=== PATIENT | male | born 1940 | race Caucasian/White ===

== ENCOUNTER 2024-12-11 19:47 | Inpatient (IN) | payer MEDICARE, BC, SELFPAY ==
[2024-12-11 20:17] VITALS: BP 148/74; PULSE 100; RESP 18; TEMP 37.3; O2SAT 97; BMI 27.8
[2024-12-11 20:33] LABS: Appearance Urine Cloudy (Clear); Bilirubin Urine Negative (Negative); Blood Urine 1+ (Negative); Color Urine Yellow (Yellow); Glucose Urine Negative (Negative); Ketones Urine Negative (Negative); Leukocyte Esterase Urine 1+ (Negative); Nitrite Urine Negative (Negative); Protein Urine Trace (Negative); Specific Gravity Urine >= 1.030 (1.000-1.030); Urobilinogen Urine 0.2 (0.2-1.0); pH Urine 5.5 (5.0-8.5)
[2024-12-11 20:58] LABS: Squamous Epithelial Cell Urine Few (None-Few)
[2024-12-11 20:59] LABS: Bacteria Urine Few
--- OUTSIDE RECORDS SUMMARY | 2024-12-11 20:59 | XMS_ITS | Encounter Summary ---
Author Organization [facility] Address [address], [place] [address] Care Team Providers Care Retirement Village Manager Name Role Phone Jameson Fink MD Primary Care Provider [phone] Reason for Referral * Procedure/Equipment (Routine) - Incomplete Specialty Diagnoses / Procedures Referred By Mariya franco Referred To Contact Diagnoses Benign prostatic hyperplasia with urinary retention Procedures Case Request OR - Urology Surgery: TRANSURETHRAL RESECTION PROSTATE Milo Lowery MD [address] [place] [id number] Referral ID Status Reason Start Date Expiration Date V isits Requested Visits Authorized [id number] Incomplete 11/13/2024 02/12/2026 1 1 TAL FORENSICS INVESTIGATOR Reason for Visit * Reason Comments Surgery Questions Encounter Details Date Type Department Care Team (Late st Contact Info) Description 11/13/2024 9:15 AM DIGITAL FORENSICS INVESTIGATOR Office Visit [facility] [address] [place] [address]. [place] [address] Milo Lowery MD [address] [place] [address] [phone] Benign prostatic hyperplasia with urinary retention (Primary Dx) Social History Tobacco Use Types Packs/Day Years Used Date Smoking Tobacco: Never Smokeless Tobacco: Never Alcohol Use Standard Drinks/Week Comments Yes 3 (1 standard drink = 0.6 oz pur e alcohol) Humiliation, Afraid, Rape, and Kick questionnair e Answer Date Recorded Within the last year, have y ou been afraid of your partner or ex-partner? No 10/04/2024 Within the last year, have y ou been humiliated or emotionally abused in other ways by your partner or ex-partner? No Within the last year, have y ou been kicked, hit, slapped, or otherwise physically hurt by your partner or ex-partner? No 10/04/2024 Within the last year, have y ou been raped or forced to have any kind of sexual activity by your partner or ex-partner? No 10/04/2024 PHQ-2 Answer Date Recorded PHQ-2 Score 0 08/12/2024 Sex and Gender Information Value Date Recorded Sex Assigned at Not on file Gender Identity Not on file Sexual Orientation Not on file documented as of this encounter Patient Instructions * Patient Instructions* Lucero Figueroa LPN - 11/13/2024 9:15 AM DIGITAL FORENSICS INVESTIGATOR Images from the original note were not included. You will be scheduled for a TURP (TransUrethral Resection of the Prostate). Within 30 Days of your surgery, you will need to see your Primary Physician for a History and Physical. This will ensure that you are medically ready to have your surgery and anesthesia. If your physical condition changes, such as you get a cold, fever or have a significant change in the condition for which you are having surgery, please contact us as soon as possible at [phone] the hours of 8:00am and 5:00pm. Do not take any Ibuprofen, Aspirin or Naprosyn type products or vitamin E within 7 days prior to your procedure. You may continue to take low dose Aspirin (81mg) as usual. If you are taking Aspirin, Coumadin, Plavix or other blood thinners for medical reasons, please consult with your prescribing physician to ensure that it is safe for you to stop. (Tylenol/acetaminophen is acceptable to take as needed for pain). Stop taking any herbal medications two weeks before your surgery. Examples of these medications include garlic supplements, fish oil, ephedra, and glucosamine. Please shower with any antibacterial soap the night before and the morning of surgery. Shampoo hairbut do not use any type of hair products such as gels or hairspray. Change bedding the night beforesurgery. Do not use lotions or deodorants prior to your surgical procedure. The Surgery Nurses will call you 1-3 days prior to surgery to confirm what time you should arrive. If they do not reach you, please call if your surgery is at [facility] or for the [facility]. Do not eat or drink after midnight the night before your surgery. This includes chewing gum and smoking. Do not have anything the morning of surgery, including water. If you are having an outpatient procedure, please have someone to drive you home. If you are staying in the hospital, please have someone to drive you home when you are discharged. Contact Information for Post Operative Care U[facility] Clinic, between the hours of 8am-5pm, Monday through Monday. After hours and on weekends, call [facility] at [phone]. For more information on what to expect during your upcoming surgery, feel free to check out our video online that reviews information about having surgery. To find this video: Go to [email or web address] or [email or web address] Search for [employer] Pre-Op Education Be sure your volume is turned on and enjoy! ~~~~~~~~~~~~~~~~~~~~~~~~~~~~~~~~~ Urinary catheter care An indwelling Watson catheter remains in place continuously. To keep the catheter from slipping out,it has a balloon on the end that is inflated with sterile water once the end is inside the bladder. An indwelling urinary catheter is a flexible plastic tube that is inserted through the opening thatcarries urine from the bladder to outside of the body (urethra), into the bladder, to drain urine. The tube is kept in place by a small balloon that is inflated once the tube is securely in the bladder. Urine drains into a bag that is attached to the lower leg. A urinary catheter is used when you cannot urinate by yourself. This may occur because of medical conditions, such as prostate enlargement and incontinence, or after surgery for prostate cancer. Urinary catheters are also used when the lower part of the body is paralyzed. Your health professional will decide how long you need to have the catheter. To care for your urinary catheter at home: Make sure that urine is flowing out of the catheter into the drainage bag. Check the area around the urethra for inflammation or signs of infection, such as irritated, swollen, red or tender skin at the insertion site or drainage around the catheter. Keep the urinary drainage bag below the level of the bladder. Make sure that the urinary drainage bag does not drag and pull on the catheter. Caring for your catheter If your health professional has given you specific instructions on caring for your urinary catheter, be sure to follow them. Always wash your hands before and after caring for your catheter. Clean the area around the drainage tube twice each day. Use soap and water to carefully wash around the drainage tube. Rinse well and dry with a clean towel. Do not tug or pull on the drainage tube. Unless you have been instructed otherwise, you may take a shower wearing your urinary catheter. Do not apply powder or lotion to the catheter insertion site. When changing leg bag to nighttime bag use alcohol wipe to cleanse end of connector prior to placing into catheter tubing. You may wrap a small piece of gauze around the area where the catheter comes out of your body. Change the gauze if it feels wet. Use a new piece of gauze each time clean your catheter. You may also apply a small amount of bacitracin ointment to tip of penis and approximately 1 inch down catheter. Drink plenty of fluids to keep producing urine. You should drink at least 8 glasses of water or other fluids each day. Do not have sexual intercourse while wearing an indwelling catheter. Prevent constipation. Make sure you drink enough fluids. Most adults should drink between 8 and 10 glasses of water, non-caffeinated beverages, or fruit juice each day. Include fruits, vegetables, and fiber in your diet each day. Try a stool softener, such as Colace, if your stools are very hard. Keep the drainage bag below the level of the bladder. At night you may wish to hang the bag on the side of your bed. Do not allow the bag to drag and pull on the catheter. Checked the drainage tube frequently to make sure it is not kinked. Do not pull or tug on your catheter. Draining the urine collection bag The bag that collects urine may be strapped your lower leg. You will need to empty the bag at regular intervals, whenever it is half full, and at bedtime. Be sure to wash your hands before and after emptying urine from your collection bag. Wash your hands with soap and water. If you are emptying another person's collection bag you may wish to wear disposable gloves. Wash your hands before you put on the gloves and after you remove them. Unfasten the tube from the drainage bag. Fasten the tubing clamp and remove the drainage cap. Drain the urine into the toilet. You may also drain the urine into another container and then emptyit into the toilet. Avoid touching the tubing or drainage cap on the toilet, the collection container, or the floor. If your health professional has instructed you to measure the amount of urine, do so before you have emptied the urine into the toilet. Replace the drainage cap, close the clamp, and refasten the collection tube to drainage bag. Refasten the collection tube to drainage bag. Wash your hands with soap and water. When to call health professional If your health professional is given instructions about when to notify him or her, be sure to follow those instructions. Call your health professional if: No urine or very little urine is flowing into the collection bag for 4 or more hours. No urine or very little urine is flowing into the collection bag and you feel like your bladder is full. You have new pain in your abdomen, pelvis, legs, or back. Your urine has changed color, is very cloudy, looks bloody, or has large blood clots in it. The insertion site becomes very irritated, swollen, red, or tender, or you have pus draining from the catheter insertion site. Your urine has a foul oder. Urine is leaking from the insertion site. You have a fever of 100??F (37.8??C) or higher or back or flank pain. You develop nausea, vomiting, or shaking chills. Where can you learn more? Go to Learnerator/Luminary Micro and enter C910 in the search box. ~~~~~~~~~~~~~~~~~~~~~~~~~~~~~~~~ What is Cystoscopy? Cystoscopy, or cystourethroscopy, is a procedure that lets a urologist view the inside of the bladder and urethra in detail. Why is Cystoscopy Performed? It is often used to find causes of bleeding or blockage, or any abnormalities of the bladder and its lining. How is Cystoscopy Performed? Cystoscopy is most often done as an outpatient procedure. Before the procedure you will empty your bladder. Then you will be placed on an exam table. A liquid or gel local anesthetic may be used on your urethra. The average cystoscopy takes about 5 to 10 minutes. Cystoscopy ?? 2009 Hortensia Mehta, [facility] has certain rights The cystoscope is inserted through the urethra into the bladder. The cystoscope is a thin, lighted tube with lenses. Most often it is bendable, but some models are rigid. Water or saline is infused through the cystoscope into the bladder. As the fluid fills the bladder, the bladder wall is stretched so the urologist can see clearly. What are the Results of Cystoscopy? The bladder wall should appear smooth, and the bladder should be normal size, shape and position. There should not be any blockages in the bladder or urethra. If any tissue appears abnormal, the cystoscope can be used to remove a small sample. In some cases, your healthcare provider will use the cystoscope to remove ureteral stents, treat scar tissues or blockages in the bladder or urethra or inject medications into the bladder and/or urethra. What Can I Expect after Cystoscopy? After the cystoscope is removed, your urethra and bladder may be sore and you may have a burning feeling for a few days. You may find some blood in your urine at first, but this should go away withina few days. You also may have burning or stinging when you urinate. You also may have increased urge to urinate or increase frequency of urination. If you still have pain, get a fever over 101?? F, or your urine is bright red and you are passing large blood clots, tell your health care provider. You have no dietary restrictions. Increase fluid intake is recommended. You have no activity restrictions unless you are told differently by your healthcare provider at the time of your appointment. ~~~~~~~~~~~~~~~~~~~~~~~~~~~~~ Instructions Your follow up appointment will be scheduled with one of the urology care team members. This may beone of our physician assistants. They are always in direct communication with your physician who remains responsible for your urologic care at [facility]. Lab or Imaging Results If labs were ordered, you will receive the results via your [employer]) account if you have one. Results are automatically released to your [employer]) account once available. This means that you may see your results before we have had a chance to review them. After the results become available, comments from our team are typically posted to your [employer]) account within 2-5 business days. We usually wait until all or nearly all of the lab results have returned and make a onetime comment rather than comment on each lab result individually. Please donot send a [employer] message requesting follow up/advice on labs or imaging that you have reviewed if we have not yet left comments for you. For Xray, CT test, and Ultrasound results, unless specifically noted, the results of these tests will be discussed at your next visit with your provider. Results will not be reviewed over the phone. If test results require immediate action, we will contact you. If you do not have a [employer] account, results typically arrive by mail within 4-6 weeks. Medication Refills For medication refills you may need to be seen once a year. For your specific follow up please discuss with your provider. If you need refills, please contact your pharmacist. They will send a refill request for us to review. Please allow 3-5 business days for us to process all refill requests. Thank you for continuing to trust us with your care. We are your partner. Our Urology team is always striving to improve your experience with us. You may randomly be selected to receive a survey via email, text or phone. The survey is 9 questions long and takes less than one minutes to complete. We would greatly appreciate your feedback. Thank you! Get Cost of Care Estimates - [phone] The health insurance marketplace has changed dramatically in the last few years. Our cost of care service will provide estimates over the phone for treatments or procedures billed through [facility]. To receive a cost estimate, simply call [phone] during regular business hours. If you have insurance coverage, you will need to verify your policy of coverage with your health plan by calling the number located on the back of your insurance card and talking to member services. TAL FORENSICS INVESTIGATOR documented in this encounter Progress Notes * Milo Lowery MD - 11/13/2024 9:15 AM CST Urology Clinic Note Date of Visit: 11/13/2024 Subjective: 8-year-old gentleman with urinary retention previously seen by Dr. Sanchez. Per her previous notes: He initially presented 09/09/2024 s/p a recent hospitalization at [facility] for urinary bacteremia and obstructive uropathy, Cr 3.8. A Watson catheter was placed. I do not have his images availablebut by report there was a significantly distended bladder with hydronephrosis. They noted 3 L of urinary residual. Creatinine has nadired at 1.03; a Cr in July was 1.77 suggesting obstructive uropathy was likely present for some time although I do not have any lab work prior to July 2024. His daughter notes that since his carpal tunnel surgery a few months ago he began developing leg edema. This leg edema has resolved since placement of the Watson catheter. Patient notes that he has had an enlarged prostate for many years. They used to live in [place]. Yrnenies any prior episodes of urinary retention although he had a Watson catheter after a back surgery. He was started on Flomax 0.4 mg and finasteride during the hospitalization. He has had high PSA and biopsies in the past. 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 He has been intolerant of intermittent catheterization. Urodynamics showed evidence of obstruction with a maximum bladder Pressure of around 67 cm of water. Per nomogram obstructed. Review of systems: No changes in ears nose throat, cognition or nervous system, skin, or endocrine systems. No Fevers chills nausea vomiting Past medical, surgical, social and allergy history reviewed and unchanged from previous. Examination: No apparent distress Breathing unlabored Abdomen soft and nontender Cystoscopy: After sterile prep of the penis a 16F flexible cystoscope was advanced into the bladderunder direct vision. The urethra was unremarkable. The prostate was approximately 4 cm in length and Severely obstructing with a prominent median lobe The bladder was carefully evaluated and found basilio free of tumor or stone. No diverticula noted. The bilateral ureteral orifices were visualized and unremarkable. Assessment and Plan: Urinary retention, catheter dependent. I discussed with the patient that it is reasonable to pursuetrans urethral resection of the prostate understanding that he is increased risk for surgical complications given advanced age and anticoagulation. I discussed the risks of bleeding infection and damage adjacent structures. The patient wishes to proceed, orders placed. Given current catheterizationstatus will prescribe Bactrim Keflex to be taken 3 days prior to surgery. Milo Lowery MD This note contains medical terminology which is meant for communication between health care physicians and providers. Please note that vocabulary/phrasing/abbreviations may not carry the same definitions as they would in normal conversational speech. This note was created using medical dictation software. Please excuse any typographical errors in systems auditor. TAL FORENSICS INVESTIGATOR documented in this encounter Nursing Notes * Lucero Figueroa LPN - 11/13/2024 9:15 AM CST Patient was prepped for a cystoscopy w/ 2% Lidocaine gel. Consent form signed. Lucero Duke LPN TAL FORENSICS INVESTIGATOR documented in this encounter Plan of Treatment Upcoming Encounters Date Type Department Care Team (Latest Contact Info) Description 12/16/2024 3:30 PM DIGITAL FORENSICS INVESTIGATOR Appointment [facility] [address] [place] [address]. [place] [address] 02/13/2025 3:20 PM CDT Appointment [facility] [address] [place] [phone] [place] [address] [place], [place] [phone] 02/28/2025 3:30 PM CDT Appointment [facility] [address] [place] [address] 03/03/2025 8:45 AM CDT Hospital Encounter Operating Room [address] [place] [address] Milo Lowery MD [address] [place] [address] [phone] 03/03/2025 8:45 AM CDT - 03/03/2025 10:30 AM CDT Surgery Operating Room [address] [place] [address] Milo Lowery MD [address] [place] [address] [phone] TRANSURETHRAL RESECTION PROSTATE 04/01/2025 3:00 PM CDT Appointment [facility] [address] [facility] [place] [address] [phone] Lynn Valdez PA-C [address] [place] [address] [phone] Scheduled Procedures Name Priority Associated Diagnoses Date/Ti mo TRANSURETHRAL RESECTION PROSTATE (SDEX) Same Day Recovery Benign prostatic hyperplasia with urinary retention 03/03/2025 8:45 AM CDT documented as of this encounter Visit Diagnoses Diagnosis Benign prostatic hyperplasia with urinary retention- Primary Benign prostatic hyperplasia with urinary retention- Primary Benign prostatic hyperplasia with urinary retention documented in this encounter Care Teams Retirement Village Manager Relationship Specialty [place] [address] [place] [address] PCP - General Family Practice 09/18/24 documented as of this encounter
--- OUTSIDE RECORDS SUMMARY | 2024-12-11 20:59 | XMS_ITS | Encounter Summary ---
Author Organization [facility] Address [address] [place] [address] Care Team Providers Care Crop Insurance Claims Adjuster Name Role Phone Jameson Fink MD Primary Care Provider [phone] Reason for Visit * Reason Comments QUESTIONS, GENERAL Encounter Details Date Type Department Care Team (Late st Contact Info) Description 11/14/2024 Telephone Cardiology at [address] [phone] Malachi Canas MD [address] [place] [phone] QUESTIONS, GENERAL Social History Tobacco Use Types Packs/Day Years [...] on file documented as of this encounter Nursing Notes * Jess Keen RN - 11/15/2024 10:14 AM CST Verbal Disclosure for Abdulaziz Adams for all things Verified pt identifiers. Went over recommendations. She was also wondering about lasix, I let her know it was sent to the pharmacy. She will inquire about this and if needed call us back. Jess Keen RN D SIGNAL DESIGN ENGINEER * Abby Olvera RN - 11/15/2024 10:07 AM CST Cancel stress test Malachi Canas MD 11/14/2024, 5:46 PM D SIGNAL DESIGN ENGINEER * Abby Olvera RN - 11/14/2024 1:16 PM CST Daughter states they were at the Urologist yesterday at which time the provider deferred decision of whether a stress test is needed for cardiac clearance prior to surgery. Abby Olvera RN, BSN 11/14/2024 1:18 PM D SIGNAL DESIGN ENGINEER * Mady Herrera - 11/14/2024 11:59 AM CST Patient daughter called and would like to speak to the nurse about the stress test. The urologist is saying its not needed.Daughter doesn't want to schedule if not needed Mady Herrera 11/14/2024, 12:00 PM D SIGNAL DESIGN ENGINEER documented in this encounter Plan of Treatment Upcoming Encounters Date Type Department Care Team (Latest Contact Info) Description 12/16/2024 3:30 PM MIXED SIGNAL DESIGN ENGINEER Appointment [facility] [address] [place] [address]. [place], [place] [phone] 02/13/2025 3:20 PM CDT Appointment [facility] [address] [place] [phone] [place] [address] [place] [address] 02/28/2025 3:30 PM CDT Appointment [facility] [address] [place] [phone] 03/03/2025 8:45 AM CDT Hospital Encounter [facility] Operating Room [address] [place] [address] Mlio Lowery MD [address] [place] [phone] 03/03/2025 8:45 AM CDT - 03/03/2025 10:30 AM CDT Surgery Operating Room [address] [place] [address] Milo Lowery MD [address] [place] [id number] TRANSURETHRAL RESECTION PROSTATE 04/01/2025 3:00 PM CDT Appointment [facility] [address] [place] [phone] Lynn Valdez PA-C [address] [place] [phone] Scheduled Procedures Name Priority Associated Diagnoses Date/Ti in TRANSURETHRAL RESECTION PROSTATE (SDEX) Same Day Recovery Benign prostatic hyperplasia with urinary retention 03/03/2025 8:45 AM CDT documented as of this encounter Visit Diagnoses Not on filedocumented in this encounter Care Teams Crop Insurance Claims Adjuster Relationship Specialty [place] [address] [place] [address] PCP - General Family Practice 09/18/24 documented as of this encounter
--- OUTSIDE RECORDS SUMMARY | 2024-12-11 20:59 | XMS_ITS | Clinical Summary ---
Author Organization [facility] Address [address], [place] [address] Care Team Providers Care Spectrographic Analyst Name Role Phone Jameson Fink MD Primary Care Provider [phone] Source Comments You are receiving this document as you are listed as the primary care provider,follow-up provider, or the patient has been referred to you for consultation.This is in compliance with the Medicare and[facility] EHR Incentive Program,which states Providers who transition their patient to another setting of careor provider of care or refers their patient to another provider of care shouldprovide summary care record for each transition of care or referral. [facility] Allergies No known active allergies Medications Medication Sig Dispensed Refills Start Date End Date Status atorvastatin (LIPITOR) 10 MG tablet Take 1 Tablet (10 mg) by mouth daily. 06/24/2024 Active XARELTO 20 MG tablet Take 1 Tablet (20 mg) by mouth daily. 06/24/2024 Active clotrimazole-betam ethasone (LOTRISONE) 1-0.05 % cream Apply topically two times daily as needed. 05/17/2024 Active tamsulosin 0.4 MG CAPS capsule Take 1 Capsule (0.4 mg) by mouth daily. Active sennosides-docusat e sodium (SENOKOT S) 8.6-50 MG per tabletIndications: Constipation Take 1 Tablet by mouth two times a day at 8 AM and 12 noon. Indications: Constipation 09/14/2024 Active acetaminophen (TYLENOL) 325 MG tabletIndications: Fever,Pain Take 2 Tablets (650 mg) by mouth three times a day as needed for Pain or Fever. Indications: Fever, Pain 09/14/2024 Active lidocaine (UROJET) 2 % prefilled syringe Apply to affected areas QID PRN 09/14/2024 Active polyethylene glycol 3350 (GLYCOLAX) 17 GM/SCOOP powder Take 17 g by mouth daily. . 09/14/2024 Active metoprolol succinate (TOPROL XL) 25 MG 24 hour release tablet Take 1 Tablet (25 mg) by mouth daily. 30 Tablet 09/16/2024 Active Additional Information Patient not taking.Reported on 12/11/2024 finasteride (PROSCAR) 5 MG tablet Take 1 Tablet (5 mg) by mouth daily. 90 Tablet 3 09/16/2024 Active sulfamethoxazole-t rimethoprim (BACTRIM DS) 800-160 MG tablet Take twice a day; start two days before your urodynamic procedure 14 Tablet 09/16/2024 Active Additional Information Patient not taking.Reported on 11/13/2024 furosemide (LASIX) 20 MG tabletIndications: Paroxysmal atrial fibrillation (HRC) Take 1 Tablet (20 mg) by mouth every Monday & Monday. Take on Monday and 26 Tablet 3 10/27/2024 10/27/2025 Active cephalexin (KEFLEX) 500 MG capsule Take 1 Capsule (500 mg) by mouth three times a day for 3 days. 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 09/04/2024 Troponin level elevated 09/04/2024 Stage 3a chronic kidney disease 09/04/2024 Carpal tunnel syndrome of left wrist 09/04/2024 Chronic deep vein thrombosis (DVT) of proximal vein of left lower extremity 09/04/2024 Spinal stenosis of lumbar re gion with neurogenic claudication 09/04/2024 Ataxia 09/04/2024 Primary osteoarthritis involving multiple joints 09/04/2024 History of pulmonary embolism 08/12/2024 Overview (09/04/2024): recurrent Functional urinary incontinence 08/12/2024 Peripheral polyneuropathy 08/12/2024 Encounters Date Type Department Care Team Description 12/11/2024 7:00 PM ASTROPHYSICS TEACHER Office Visit [facility] [address] [place] [phone] Ciara Hernandez MD Weakness 11/14/2024 Telephone Cardiology at [address] [phone] Malachi Canas MD QUESTIONS, GENERAL 11/13/2024 9:15 AM ASTROPHYSICS TEACHER Office Visit [facility] Urology Clinic [address] [place] [address] Milo Lowery MD Benign prostatic hyperplasia with urinary retention (Primary Dx) 10/25/2024 Telephone Specialty [place] [address] [address] Milo Lowery MD APPOINTMENT REQUEST 10/22/2024 9:00 AM ASTROPHYSICS TEACHER Initial Consult Cardiology at [address] [phone] Malachi Canas MD Paroxysmal atrial fibrillation (HRC) (Primary Dx); Troponin I above reference range; History of pulmonary embolus (PE); Hyperlipidemia, unspecified hyperlipidemia type (HRC); Stage 3a chronic kidney disease (HRC) 10/17/2024 8:15 AM ASTROPHYSICS TEACHER Office Visit [facility] [address] [facility] [place] [address] Sharee Sanchez MD Urinary retention (Primary Dx) 10/09/2024 8:15 AM ASTROPHYSICS TEACHER Office Visit [facility] Urodynamics Clinic [address] [place] [phone] Urinary retention (Primary Dx); Benign prostatic hyperplasia with urinary retention 10/05/2024 1:28 AM ASTROPHYSICS TEACHER - 10/05/2024 3:31 AM ASTROPHYSICS TEACHER Emergency [facility] [address] [place] [address] Dez Stevens MD Hematuria, unspecified type (Primary Dx); Problem with Watson catheter, initial encounter (HRC) Discharge Disposition: Home 10/05/2024 Nurse Triage Careline [address] [place] [address] Unassigned, Provider CATHETERIZATION; URINATION, URINATE, DIFFICULTY IN, NOS; FOLLOW-UP,ER 10/04/2024 11:50 AM ASTROPHYSICS TEACHER Ancillary Procedure [facility] [address] [place] [address] 10/04/2024 11:08 AM ASTROPHYSICS TEACHER - 10/04/2024 4:28 PM ASTROPHYSICS TEACHER Emergency [facility] [address] [place] [address] Dariana Donovan MD Hematuria, unspecified type (Primary Dx) Discharge Disposition: Home 10/03/2024 11:30 AM ASTROPHYSICS TEACHER Lab Visit [place] [address] [place] [address] Suspected UTI 10/03/2024 Telephone [place] [address] [address] [place] [address]. [place] [address] Sharee Sanchez MD 10/02/2024 8:00 AM ASTROPHYSICS TEACHER Office Visit [place] [address] [address] [place] [address]. [place] [address] Sharee Sanchez MD Urinary retention (Primary Dx) 09/26/[address] [phone] Jameson Fink MD Forms 09/20/2024 Notes/Orders [address] [phone] Jameson Fink MD Fitting and adjustment of urinary device (Primary Dx) 09/20/2024 Notes/Orders [address] [phone] Jameson Fink MD Fitting and adjustment of urinary device (Primary Dx) 09/19/2024 10:20 AM CDT Office Visit [address] [phone] Jameson Fink MD Encounter to establish care (Primary Dx); Paroxysmal atrial fibrillation (HRC); History of pulmonary embolism; Chronic deep vein thrombosis (DVT) of proximal vein of left lower extremity (HRC); Benign prostatic hyperplasia with urinary retention; Dyslipidemia (HRC) 09/17/2024 Telephone [facility] [address] [place] [address] Jameson Fink MD Verbal Orders (Delay start of care) 09/16/2024 3:30 PM CDT Office Visit [facility] Urology Clinic [address] [place] [address]. [place] [address] Sharee Sanchez MD Urinary retention (Primary Dx) 09/16/2024 Refill [facility] [address] [place] [address] Rachel Edmond, SENIOR MANUFACTURING ENGINEER, LOBBY ATTENDANT Refill 09/14/2024 Notes/Orders [facility] [address] [place], [place] [phone] Anali Weeks, SENIOR MANUFACTURING ENGINEER, DNP Pain 09/14/2024 Telephone [facility] [address] [place], [place] [phone] Anali Weeks, SENIOR MANUFACTURING ENGINEER, DNP 09/11/2024 Geriatrics [facility] [address] [place], [place] [address] Henry Mcallister MD 09/10/2024 Telephone [facility] Urology Clinic [address] [place] [address]. [place] [address] Sharee Sanchez MD from Last 3 Months Immunizations Name Administration Dates Next Due Influenza IIV4 (Quadrivalent) Fluzone, 65+ Yrs 1 Influenza aIIV3 65+ Years (Fluad) 08/09/2024 Influenza, Unspecified Formulation 08/31/2022 Moderna COVID-19 12+ 08/09/2024,09/01/2023 Rsv Unspecified 08/17/2023 Zoster RZV (Shingrix) 04/16/2020,04/15/2020 Social History Tobacco Use Types Packs/Day Years [...] on file Sexual Orientation Not on file Last Filed Vital Signs Vital Sign Reading Time Taken Comments Blood Pressure 155/65 12/11/2024 6:49 PM ASTROPHYSICS TEACHER Pulse 102 12/11/2024 6:49 PM ASTROPHYSICS TEACHER Temperature 36.6 C (97.8 F) 10/05/2024 12:34 AM ASTROPHYSICS TEACHER Respiratory Rate 16 12/11/2024 6:49 PM ASTROPHYSICS TEACHER Oxygen Saturation 97% 12/11/2024 6:4 9 PM ASTROPHYSICS TEACHER Inhaled Oxygen Concentration - - Weight 93.8 kg (206 lb 12.8 oz) 024 8:59 AM ASTROPHYSICS TEACHER With shoes Height 182.9 cm (6') 10/22/2024 8:59 AM ASTROPHYSICS TEACHER Body Mass Index 28.05 10/22/2024 8:59 AM ASTROPHYSICS TEACHER Plan of Treatment Upcoming Encounters Date Type Department Care Team (Latest Contact Info) Description 12/16/2024 3:30 PM ASTROPHYSICS TEACHER Appointment [facility] [address] [place], [place] [phone] 02/13/2025 3:20 PM CDT Appointment [facility] [address] [place] [address] [place] [address] [place], [place] [phone] 02/28/2025 3:30 PM CDT Appointment [address] [address] 03/03/2025 8:45 AM CDT Hospital Encounter [facility] Operating Room [address] [place] [address] Milo Lowery MD [address] [place] [address] 03/03/2025 8:45 AM CDT - 03/03/2025 10:30 AM CDT Surgery Operating Room [address] [place] [address] Milo Lowery MD [address] [place] [phone] TRANSURETHRAL RESECTION PROSTATE 04/01/2025 3:00 PM CDT Appointment [facility] Urology Clinic [address] [place] [address] Lynn Valdez PA-C [address] [place] [address] Scheduled Procedures Name Priority Associated Diagnoses Date/Ti me TRANSURETHRAL RESECTION PROSTATE (SDEX) Same Day Recovery Benign prostatic hyperplasia with urinary retention 03/03/2025 8:45 AM CDT Health Maintenance Due Date Last Done Comments DTaP/Tdap/Td (1 - Tdap) 1959 Pneumococcal 65+ Yrs (1 - PCV) 2005 RSV (1 - 1-dose 75+ series) 2015 Zoster/Shingles (2 of 2) 06/11/2020 020, 04/15/2020 Medicare Annual Wellness Visit 08/12/2025 08/12/2024 COVID-19 Vaccine Completed 08/09/2024, 09/01/2023 Influenza Completed 08/09/2024, 09/01/2023, 08/31/2022 HepA Aged Out No longer eligi ble based on patient's age to complete this topic HepB Aged Out No longer eligi ble based on patient's age to complete this topic Hib Aged Out No longer eligi ble based on patient's age to complete this topic IPV (Polio) Aged Out No longer eligi ble based on patient's age to complete this topic MCV4 Aged Out No longer eligi ble based on patient's age to complete this topic Procedures Procedure Name Priority Date/Time Associated Diagnosis Comments ECG-ROUTINE 12 LEAD; INTRPT & REPRT Routine 10/22/2024 9:06 AM ASTROPHYSICS TEACHER Paroxysmal atrial fibrillation (HRC) US RENAL W BLADDER STAT 10/04/2024 2: 23 PM ASTROPHYSICS TEACHER BASIC METABOLIC PANEL Add-On 10/04/2024 12:35 PM ASTROPHYSICS TEACHER EXTRA BLUE TOP TUBE Routine 10/04/2024 1 2:35 PM ASTROPHYSICS TEACHER EXTRA LIGHT GREEN TUBE Routine 10/04/2024 12:35 PM ASTROPHYSICS TEACHER RAINBOW DRAW AND HOLD Routine 10/04/2024 12:35 PM ASTROPHYSICS TEACHER HEMOGLOBIN, BLOOD STAT 10/04/2024 12: 35 PM ASTROPHYSICS TEACHER URINE CULTURE Routine 10/03/2024 11:51 AM ASTROPHYSICS TEACHER Suspected UTI UA MICRO Routine 10/03/2024 11:51 AM ASTROPHYSICS TEACHER Suspected UTI UA WITH MICROSCOPIC Routine 10/03/2024 1 1:51 AM ASTROPHYSICS TEACHER Suspected UTI from Last 3 Months Results * ECG 12-LEAD ROUTINE (Non Lab to perform-Today) (10/22/2024 9:06 AM ASTROPHYSICS TEACHER) Ventricular Rate 87 BPM MUSE GHP Atrial Rate 87 BPM MUSE GHP P-R Interval 182 ms MUSE GHP QRS Duration 132 ms MUSE GHP QT 404 ms MUSE GHP QTC 486 ms MUSE GHP P Norden 69 degrees MUSE GHP R Norden 81 degrees MUSE GHP T Norden 47 degrees MUSE GHP 10/22/2024 9:06 AM ASTROPHYSICS TEACHER Narrative MUSE GHP - 10/22/2024 4:11 PM ASTROPHYSICS TEACHER Sinus rhythm with Premature atrial complexes Right bundle branch block Abnormal ECG No previous ECGs available Confirmed by Brenden Herr ([id number]) on 10/22/2024 4:11:39 PM Procedure Note Brenden Herr MD - 10/22/2024 Sinus rhythm with Premature atrial complexes Right bundle branch block Abnormal ECG No previous ECGs available Confirmed by Brenden Herr ([id number]) on 10/22/2024 4:11:39 PM Malachi Canas MD EKG MUSE GHP [address] [place] [address] * US Renal W Bladder (10/04/2024 2:23 PM ASTROPHYSICS TEACHER) Anatomical Region Laterality Modality Abdomen, Pelvis Ultrasound 10/04/2024 2:23 PM ASTROPHYSICS TEACHER Narrative 10/04/2024 2:29 PM ASTROPHYSICS TEACHER EXAM: US RENAL W BLADDER LOCATION: [facility] DATE: 10/04/2024 INDICATION: Eval for clot burden in bladder. Pain. COMPARISON: None. TECHNIQUE: Routine Bilateral Renal and Bladder Ultrasound. FINDINGS: RIGHT KIDNEY: 10.1 x 6.1 x 5.1 cm. Normal parenchymal echogenicity with mild to moderate hydronephrosis. Several anechoic avascular cysts, the largest of which measuring approximately 2.2 cm. LEFT KIDNEY: 10.8 x 6.0 x 4.4 cm. Normal parenchymal echogenicity without hydronephrosis. BLADDER: Watson catheter. Distended with a thickened and trabeculated wall. Hypoechoic avascular lesion within the bladder, likely represents hemorrhagic clot given the provided indication. This measures approximately 4.2 x 3.3 x 3.0 cm. The remainder of the fluid within the bladder appears simple. IMPRESSION: 1. Probable hemorrhagic clot within the bladder as described above. 2. Mild to moderate right renal hydronephrosis. 3. No left renal hydronephrosis. 4. Simple cyst within the right kidney requiring no further imaging follow-up. Procedure Note Juan Alberto Jones MD - 10/04/2024 EXAM: US RENAL W BLADDER LOCATION: [facility] DATE: 10/04/2024 INDICATION: Eval for clot burden in bladder. Pain. COMPARISON: None. TECHNIQUE: Routine Bilateral Renal and Bladder Ultrasound. FINDINGS: RIGHT KIDNEY: 10.1 x 6.1 x 5.1 cm. Normal parenchymal echogenicity withmild to moderate hydronephrosis. Several anechoic avascular cysts, thelargest of which measuring approximately 2.2 cm. LEFT KIDNEY: 10.8 x 6.0 x 4.4 cm. Normal parenchymal echogenicity withouthydronephrosis. BLADDER: Watson catheter. Distended with a thickened and trabeculated wall.Hypoechoic avascular lesion within the bladder, likely representshemorrhagic clot given the provided indication. This measuresapproximately 4.2 x 3.3 x 3.0 cm. The remainder of the fluid within thebladder appears simple. IMPRESSION: 1. Probable hemorrhagic clot within the bladder as described above. 2. Mild to moderate right renal hydronephrosis. 3. No left renal hydronephrosis. 4. Simple cyst within the right kidney requiring no further imagingfollow-up. Ivanna Styles PA-C RAD US * Extra Blue top tube (10/04/2024 12:35 PM ASTROPHYSICS TEACHER) Extra Blue Top Drawn Specimen will be held for 24 hours 10/04/2024 2:[address] [facility] Blood Venipuncture / Unknown 10/04/2024 12:35 PM ASTROPHYSICS TEACHER 10/04/2024 12:45 PM ASTROPHYSICS TEACHER Dariana Donovan MD LAB_1 Performing Organization Address [facility] [address]/[facility] Co de Phone Number [address] [address], [facility] * Extra Light Green Tube (10/04/2024 12:35 PM ASTROPHYSICS TEACHER) Extra Light Green Tube Drawn Specimen will be held for 5 days 10/04/2024 2:[address] [facility] Blood Venipuncture / Unknown 10/04/2024 12:35 PM ASTROPHYSICS TEACHER 10/04/2024 12:45 PM ASTROPHYSICS TEACHER Dariana Donovan MD LAB_1 Performing Organization Address [facility] [address]/ZIP [place] [address], [facility] * Basic Metabolic Panel (10/04/2024 12:35 PM ASTROPHYSICS TEACHER) Pathologist [facility] Sodium 137 136 - 145 mmol/L 10/04/2024 3:03 PM [facility] Potassium 4.2 3.5 - 5.1 mmol/L 10/04/2024 3:03 PM [facility] Comment:Specimen slightly he molyzed. Hemolysis may affect result. Chloride 107 98 - 109 mmol/L 10/04/2024 3:03 PM [facility] CO2 21 20 - 29 mmol/L 10/04/2024 3:03 PM [facility] Anion Gap 9 6 - 16 mmol/L 10/04/2024 3:03 PM [facility] Calcium 9.1 8.4 - 10.4 mg/dL 10/04/2024 3:03 PM [facility] BUN 21 7 - 26 mg/dL 10/04/2024 3:03 PM [facility] Creatinine 1.03 0.73 - 1.18 mg/dL 10/04/2024 3:03 PM [facility] Glucose 97 70 - 100 mg/dL 10/04/2024 3:03 PM [facility] Comment:The given reference range is for the fasting state. Non-fasting reference range for glucose is 70 - 180 mg/dL. GFR, Estimated >60 >60 mL/min/1.7 3m2 10/04/2024 3:03 PM [facility] Blood Venipuncture / Unknown 10/04/2024 12:35 PM ASTROPHYSICS TEACHER 10/04/2024 12:45 PM ASTROPHYSICS TEACHER Lay Matute PA-C LAB_1 [place] [address], [facility] * (ABNORMAL) Hemoglobin, Blood (10/04/2024 12:35 PM ASTROPHYSICS TEACHER) Pathologist [facility] Hemoglobin 10.9(L) 13.5 - 17.5 g/dL 10/04/2024 12:56 PM [facility] Blood Venipuncture / Unknown 10/04/2024 12:35 PM ASTROPHYSICS TEACHER 10/04/2024 12:45 PM ASTROPHYSICS TEACHER Ivanna Styles PA-C LAB_1 Performing Organization Address [facility] [address]/ZIP Co de Phone Number [address] * (ABNORMAL) Urine Culture (10/03/2024 11:51 AM ASTROPHYSICS TEACHER) Urine Culture Growth(A) 10/04/2024 2:17 PM [facility] Urine Culture <10,000 CFU/mL Gram Negative Bacilli 10/04/2024 2:17 PM [facility] Comment: No Further Identification The presence of organisms at <10,000 cfu/ml in culture, UTI unlikely. Urine (Straight catheter) Non-blood Collection / Unknown 10/03/2024 11:51 AM ASTROPHYSICS TEACHER 10/03/2024 11:51 AM ASTROPHYSICS TEACHER Sharee Sanchez MD LAB_1 Performing Organization Address [facility] [address]/[facility] Co de Phone Number [address] * (ABNORMAL) UA with Microscopic: Straight catheter (10/03/2024 11:51 AM ASTROPHYSICS TEACHER) Color Yellow 10/03/2024 11:59 AM [facility] [address] LABORATORY Clarity Cloudy(A) Clear 10/03/2024 11:59 AM [facility] [address] LAB[facility]ORY Specific [place] 1.015 1.005 - 1.030 10/03/2024 11:59 AM [facility] [address] LAB[facility]ATORY pH 7.0 5.0 - 8.0 10/03/2024 11:59 AM [facility] [address] LAB[facility] Protein 30(A) Neg/Trace mg/dL 10/03/2024 11:59 AM [facility] [address] [facility] Glucose Negative Negative mg/dL 10/03/2024 11:59 AM [facility] [address] [facility] Ketones Negative Negative mg/dL 10/03/2024 11:59 AM [facility] [address] [facility] Urobilinogen 0.2 <2.0 EU/dL 10/03/2024 11:59 AM [facility] [address] [facility] Bilirubin Negative Negative 10/03/2024 11:59 AM [facility] [address] [facility] Blood Large(A) Neg/Trace 10/03/2024 11:59 AM [facility] [address] [facility] Nitrite Negative Negative 10/03/2024 11:59 AM [facility] [address] [facility] Leukocyte Esterase Negative Negative 10/03/2024 11:59 AM [facility] [address] LAB[facility] Source Straight catheter 10/03/2024 11:59 AM [facility] [address] LAB[facility] Urine (Straight catheter) Non-blood Collection / Unknown 10/03/2024 11:51 AM ASTROPHYSICS TEACHER 10/03/2024 11:51 AM ASTROPHYSICS TEACHER Sharee Sanchez MD LAB_1 [facility] [address] * (ABNORMAL) Urine Microscopic Evaluation: Straight catheter (10/03/2024 11:51 AM ASTROPHYSICS TEACHER) Red Blood Cells Packed Field(A) 0 - 3 /HPF 10/03/2024 11:59 AM [facility] [address] LABORATORY White Blood Cells 0-5 0 - 5 /HPF 10/03/2024 11:59 AM [facility] [address] LAB[facility] Urine (Straight catheter) Non-blood Collection / Unknown 10/03/2024 11:51 AM ASTROPHYSICS TEACHER 10/03/2024 11:51 AM ASTROPHYSICS TEACHER Sharee Sanchez MD LAB_1 [facility] [address] from Last 3 Months Care Teams Spectrographic Analyst Relationship Specialty [place] [id number] [place] [address] PCP - General Family Practice 09/18/24
--- OUTSIDE RECORDS SUMMARY | 2024-12-11 20:59 | XMS_ITS | Referral Summary ---
Author Organization [facility] Address [address] [place] [address] Care Team Providers Care Social Service Director Name Role Phone Wilfrid Moses PA-C Primary Care Provider Encounters Date Type Department Care Team Description 12/11/2024 Travel 12/11/2024 6:28 PM SEMICONDUCTOR WAFERS MARKER - 12/11/2024 6:44 PM [facility] Emergency Dept [address] [place] [address] Discharge Disposition: Home or Self Care from Last 3 Months Allergies No known active allergies Medications atorvastatin (LIPITOR) 10 MG tablet Take 10 mg by mouth daily. Active rivaroxaban ANTICOAGULANT (XARELTO) 20 MG TABS tablet Take 20 mg by mouth daily. Active potassium chloride marcella ER (KLOR-CON M10) 10 MEQ CR tablet Take 10 mEq by mouth three times a week. MWF Active oxyBUTYnin ER (DITROPAN XL) 5 MG 24 hr tablet Take 5 mg by mouth daily. Active furosemide (LASIX) 40 MG tablet Take 40 mg by mouth daily. Active clotrimazole-betam ethasone (LOTRISONE) 1-0.05 % external cream Apply topically 2 times daily as needed. Active tamsulosin (FLOMAX) 0.4 MG capsule Take 0.4 mg by mouth daily. Active finasteride (PROSCAR) 5 MG tabletIndications: Bladder outlet obstruction Take 1 tablet (5 mg) by mouth daily. Active metoprolol succinate ER (TOPROL XL) 25 MG 24 hr tabletIndications: Atrial fibrillation with rapid ventricular response (H) Take 1 tablet (25 mg) by mouth daily. Active Active Problems Problem Noted Date Diagnosed Date Bacteremia 09/01/2024 Citrobacter infection 09/01/2024 Paroxysmal atrial fibrillation 09/01/2024 Atrial fibrillation with rapid ventricular respo nse 08/31/2024 Chronic anticoagulation 08/30/2024 NSTEMI (non-ST elevated myocardial infarction) 1 Bladder outlet obstruction 08/30/2024 Acute kidney injury 08/30/2024 Acute urinary retention 08/30/2024 Right sided weakness 08/30/2024 Severe sepsis 08/30/2024 Social History Tobacco Use Types Packs/Day Years Used Date Smoking Tobacco: Never Assessed Food Insecurity Answer Date Recorded Within the past 12 months, d id you worry that your food would run out before you got money to buy more? No 08/31/2024 Within the past 12 months, d id the food you bought just not last and you didn t have money to get more? No 08/31/2024 Housing Stability Answer Date Recorded Do you have housing? (Housin g is defined as stable permanent housing and does not include staying ouside in a car, in a tent, in an abandoned building, in an overnight alf, or couch-surfing.) No 08/31/2024 Are you worried about losing your housing? No 08/31/2024 Financial Resource Strain Answer Date R ecorded Within the past 12 months, h ave you or your family members you live with been unable to get utilities (heat, electricity) when it was really needed? No 08/31/2024 Transportation Needs Answer Date Record ed Within the past 12 months, h as lack of transportation kept you from medical appointments, getting your medicines, non-medical meetings or appointments, work, or from getting things that you need? No 08/31/2024 Interpersonal Safety Answer Date Record ed Do you feel physically and e motionally safe where you currently live? Yes 08/31/2024 Within the past 12 months, h ave you been hit, slapped, kicked or otherwise physically hurt by someone? No 08/31/2024 Within the past 12 months, h ave you been humiliated or emotionally abused in other ways by your partner or ex-partner? No 08/31/2024 Sex and Gender Information Value Date Recorded Sex Assigned at Not on file Legal Sex Male 2:05 PM CDT Gender Identity Not on file Sexual Orientation Not on file Last Filed Vital Signs Vital Sign Reading Time Taken Comments Blood Pressure 149/64 09/02/2024 9:10 AM CDT Pulse 70 09/02/2024 12:02 AM CDT Temperature 36.7 C (98 F) 09/02/2024 9:10 AM CDT Respiratory Rate 18 09/02/2024 9:10 AM CDT Oxygen Saturation 98% 09/02/2024 12:02 AM CDT Inhaled Oxygen Concentration - - Weight 89.9 kg (198 lb 3.1 oz) 08/31/2024 1:30 P M CDT Height 182.9 cm (6') 08/31/2024 1:30 PM CDT Body Mass Index 26.88 08/31/2024 1:30 PM CDT Plan of Treatment Not on file Insurance MEDICARE [facility] OUT OF STATE JERRI [id number] [facility] [address] [place] [id number] MEDICARE [place] OUT OF STATE Advance Directives For more information, please contact: [phone] * Full Code (Latest Code Status on File) Date Activated Date Inactivated Comments 08/30/2024 9:58 PM 09/02/2024 4:48 PM All basic an d advanced life-sustaining interventions are performed as appropriate Question Answer Comments Code status determined by: Discussion with sandra nt/ legal decision maker Care Teams Social Service Director Relationship Specialty Start Date End Date Wilfrid Moses PA-C [address] [place] [address] PCP - General 09/01/24
--- OUTSIDE RECORDS SUMMARY | 2024-12-11 20:59 | XMS_ITS | Encounter Summary ---
Author Organization [facility] Address [address] [address] Care Team Providers Care Blow Torch Operator Name Role Phone Jameson Fink MD Primary Care Provider + [phone] Encounter Details Date Type Department Care Team (Late st Contact Info) Description 10/03/2024 Telephone [facility] [address] [place] [address] Sharee Sanchez MD [address] [place] [id number] Social History Tobacco Use Types Packs/Day Years [...] as of this encounter Nursing Notes * Jennifer Wang - 10/22/2024 10:47 AM CST Pt disconnected call. Jennifer Wang 10/22/2024, 10:47 AM SETTER * Gianna Orr RN - 10/21/2024 1:07 PM CST 11/13 at 915 with Beverley Thanks! SETTER * Sharee Sanchez MD - 10/18/2024 7:39 AM CST Please schedule an in person appointment with Dr. Lowery as soon as possible for a possible TURP. He will need salazar exchange in about one month. Sharee Sanchez MD 10/18/2024, 7:40 AM SETTER * Sho Ignacio RN - 10/04/2024 9:07 AM CST Pt has not CIC since 6 pm last night. In the middle of the night he urinated; it started off as blood, hesitated and then a large burst of blood clots came out and he urinated again. This process repeated 3 other times. He still notes more blood and less urine when he urinates. Clots have been morepresent. Pt having trouble getting urine out. RN recommend that pt presents to ED for examination. RN paged PA and informed of pt's intent to go to ED today. Leanne RICHARDSON SETTER * Sho Ignacio RN - 10/03/2024 10:16 AM CST Pt reports that with CIC he has noticed getting a lot of blood. Urine appears to be mostly blood with cathing and then it thins out. He reports his urine to look like strawberry lemonade. He states that he sees home nursing who has offered to put in another salazar. RN encouraged fluids. Pt denies frequency, pain, n/v, cloudy urine and fever. RN advised the hematuria dangers signs such as tomato soup like consistency urine, the inability to void, or passing a large amount of blood clots, making it difficult to urinate, dizziness or light headedness- for any of these, patient should seek care atthe emergency room. Pt reports that he felt the urge to urinate at 7 am, then only a small amount came out. It was mostly blood. He has the most pain at the end of CIC. Pt has an enlarged prostate; RN advised that the prostate is sensitive and is not uncommon to bleed. Pt is not using Coude tipped catheters. RN explained how to use the coude tipped catheter. Pt will come into the clinic to peanut picker samples and drop off a UA/UC. Pt will continue to monitor. Dispensed 15 [facility] [place] # [id number] 16 tremaine Rasheed (cougurwinder) Leanne RICHARDSON SETTER * Brando Zhu - 10/03/2024 9:37 AM CST Patient states having blood with self cathing, ???Due to high clinic and hospital/trauma volume, callback and my chart turnaround time will be longer than normal. If an urgent matter, please contact your primary care provider or proceed to urgent care/emergency department.?? Brando Zhu 10/03/2024, 9:38 AM SETTER * Jennifer Wang - 10/03/2024 8:57 AM CST Pt called in stating had cath changed to new cath yesterday and is having bleeding. Please advise. Jennifer Wang 10/03/2024, 8:57 AM SETTER documented in this encounter Plan of Treatment Upcoming Encounters Date Type Department Care Team (Latest Contact Info) Description 12/16/2024 3:30 PM CORE SETTER Appointment Specialty Center [facility] [address] [place] [address] 02/13/2025 3:20 PM CDT Appointment [facility] [address] [place] [phone] [place] [address] [place] [address] 02/28/2025 3:30 PM CDT Appointment [facility] [address] [place] [id number] 03/03/2025 8:45 AM CDT Hospital Encounter Operating Room [address] [place] [address] Milo Lowery MD [address] [place] [address] 03/03/2025 8:45 AM CDT - 03/03/2025 10:30 AM CDT Surgery Operating Room [address] [place] [address] Milo Lowery MD [address] [place] [address] TRANSURETHRAL RESECTION PROSTATE 04/01/2025 3:00 PM CDT Appointment Specialty [facility] U[facility] Clinic [address] [place] [address] Lynn Valdez PA-C [address] [place] [id number] Scheduled Procedures Name Priority Associated Diagnoses Date/Ti me TRANSURETHRAL RESECTION PROSTATE (SDEX) Same Day Recovery Benign prostatic hyperplasia with urinary retention 03/03/2025 8:45 AM CDT documented as of this encounter Results * (ABNORMAL) UA with Microscopic: Straight catheter (10/03/2024 11:51 AM CORE SETTER) Color Yellow 10/03/2024 11:59 AM [facility] 435 LABORATORY Clarity Cloudy(A) Clear 10/03/2024 11:59 AM [facility] 435 LABORATORY Specific Center [place] 1.015 1.005 - 1.030 10/03/2024 11:59 AM [facility] 435 LABORATORY pH 7.0 5.0 - 8.0 10/03/2024 11:59 AM [facility] 435 LABORATORY Protein 30(A) Neg/Trace mg/dL 10/03/2024 11:59 AM [facility] 435 LABORATORY Glucose Negative Negative mg/dL 10/03/2024 11:59 AM [facility] 435 LABORATORY Ketones Negative Negative mg/dL 10/03/2024 11:59 AM [facility] 435 LABORATORY Urobilinogen 0.2 <2.0 EU/dL 10/03/2024 11:59 AM [facility] 435 LABORATORY Bilirubin Negative Negative 10/03/2024 11:59 AM [facility] 435 LABORATORY Blood Large(A) Neg/Trace 10/03/2024 11:59 AM [facility] 435 LABORATORY Nitrite Negative Negative 10/03/2024 11:59 AM [facility] 435 LABORATORY Leukocyte Esterase Negative Negative 10/03/2024 11:59 AM [facility] 435 LABORATORY Source Straight catheter 10/03/2024 11:59 AM [facility] 435 LABORATORY Urine (Straight catheter) Non-blood Collection / Unknown 10/03/2024 11:51 AM CORE SETTER 10/03/2024 11:51 AM [facility] Sharee Sanchez MD LAB_1 [facility] 435 LABORATORY [address] [place] [address], [facility] documented in this encounter Visit Diagnoses Diagnosis Suspected UTI- Primary Benign prostatic hyperplasia with urinary retention documented in this encounter Care Teams Blow Torch Operator Relationship Specialty [place] [address] [place] [address] PCP - General Family Practice 09/18/24 documented as of this encounter
--- OUTSIDE RECORDS SUMMARY | 2024-12-11 20:59 | XMS_ITS | Encounter Summary ---
Author Organization [facility] Address [address] [place] [address]. [place] [address] Care Team Providers Care Ship Carpenter Name Role Phone Wilfrid Moses PA-C Primary Care Provider + [phone] Encounter Details Date Type Department Care Team (Late st Contact Info) Description 12/11/2024 6:28 PM FIELD APPRAISER - 12/11/2024 6:44 PM FIELD APPRAISER Emergency [facility] Emergency Dept [address] [place] [address] Discharge Disposition: Home or Self Care Social History Tobacco Use Types Packs/Day Years [...] Answer Date Recorded Do you have housing? (Carolinin g is defined as stable permanent housing and does not include staying ouside in a car, in a tent, in an abandoned building, in an overnight fdc, or couch-surfing.) No 08/31/2024 Are you worried [...] on file documented as of this encounter Medications at Time of Discharge atorvastatin (LIPITOR) 10 MG tablet Take 10 mg by mouth daily. clotrimazole-betame thasone (LOTRISONE) 1-0.05 % external cream Apply topically 2 times daily as needed. finasteride (PROSCAR) 5 MG tabletIndications:B ladder outlet obstruction Take 1 tablet (5 mg) by mouth daily. 09/03/2024 furosemide (LASIX) 40 MG tablet Take 40 mg by mouth daily. metoprolol succinate ER (TOPROL XL) 25 MG 24 hr tabletIndications:A trial fibrillation with rapid ventricular response (H) Take 1 tablet (25 mg) by mouth daily. 09/03/2024 oxyBUTYnin ER (DITROPAN XL) 5 MG 24 hr tablet Take 5 mg by mouth daily. potassium chloride marcella ER (KLOR-CON M10) 10 MEQ CR tablet Take 10 mEq by mouth three times a week. MWF rivaroxaban ANTICOAGULANT (XARELTO) 20 MG TABS tablet Take 20 mg by mouth daily. tamsulosin (FLOMAX) 0.4 MG capsule Take 0.4 mg by mouth daily. documented as of this encounter Plan of Treatment Not on file documented as of this encounter Visit Diagnoses Not on filedocumented in this encounter Care Teams Ship Carpenter Relationship Specialty Start Date End Date Wilfrid Moses PA-C [address] [place] [address] PCP - General 09/01/24 documented as of this encounter
--- OUTSIDE RECORDS SUMMARY | 2024-12-11 20:59 | XMS_ITS | Clinical Summary ---
Author Organization [facility] Address [address] [place] [address] Care Team Providers Care Drawer In Jacquard Loom Name Role Phone Wilfrid Moses PA-C Primary Care Provider + [phone] Allergies No known active allergies Medications atorvastatin [...] Right sided weakness 08/30/2024 Severe sepsis 08/30/2024 Encounters Date Type Department Care Team Description 12/11/2024 6:28 PM CAREER DEVELOPMENT COORDINATOR - 12/11/2024 6:44 PM CAREER DEVELOPMENT COORDINATOR Emergency [facility] Emergency Dept [address] [place] [phone] Discharge Disposition: Home or Self Care 12/11/2024 Travel from Last 3 Months Social History Tobacco Use Types Packs/Day Years [...] in an abandoned building, in an overnight halfway, or couch-surfing.) No 08/31/2024 Are you worried [...] 08/31/2024 1:30 PM CDT Plan of Treatment Health Maintenance Due Date Last Done Comments ADVANCE CARE PLANNING 1940 ANNUAL REVIEW OF HM ORDERS 1940 LIPID 1940 Pneumococcal Vaccine: 50+ Years (1 of 2 - PCV) 1959 DTAP/TDAP/TD IMMUNIZATION (1 - Tdap) 1965 FALL RISK ASSESSMENT 2005 MEDICARE ANNUAL WELLNESS VISIT 2005 RSV VACCINE (1 - 1-dose 75+ series) 2015 ZOSTER IMMUNIZATION (2 of 2) 06/11/2020, 04/15/2020 PHQ-2 (once per calendar year) 2024 COVID-19 Vaccine Completed 08/09/2024, 09/01/2023 INFLUENZA VACCINE Completed 08/09/2024, 09/01/2023, 08/31/2022 HPV IMMUNIZATION Aged Out No longer e ligible based on patient's age to complete this topic MENINGITIS IMMUNIZATION Aged Out No l onger eligible based on patient's age to complete this topic RSV MONOCLONAL ANTIBODY Aged Out No l onger eligible based on patient's age to complete [place] [id number] [place] [id number] [employer] OUT OF STATE Advance Directives For more information, please contact: [phone] * Full Code (Latest Code Status on File) Date Activated Date Inactivated Comments 08/30/2024 9:58 PM 09/02/2024 4:48 PM All basic an d advanced life-sustaining interventions are performed as appropriate Question Answer Comments Code status determined by: Discussion with patie nt/ legal decision maker Care Teams Drawer In Jacquard Loom Relationship Specialty Start Date End Date Wilfrid Moses PA-C [address] [place] [address] PCP - General 09/01/24
--- OUTSIDE RECORDS SUMMARY | 2024-12-11 20:59 | XMS_ITS | Encounter Summary ---
Author Organization [facility] Address [address] [place] [address]. [place] [address] Care Team Providers Care Pipeline Inspector Name Role Phone Wilfrid Moses PA-C Primary Care Provider + [phone] Encounter Details Date Type Department Care Team (Latest Contact Info) Description 12/11/2024 Travel Social History Tobacco Use Types Packs/Day Years [...] Answer Date Recorded Do you have housing? ([place] g is defined as stable permanent housing and does not include staying ouside in a car, in a tent, in an abandoned building, in an overnight retirement, or couch-surfing.) No 08/31/2024 Are you worried [...] on file documented as of this encounter Plan of Treatment Not on file documented as of this encounter Visit Diagnoses Not on filedocumented in this encounter Care Teams Pipeline Inspector Relationship Specialty Start Date End Date Wilfrid Moses PA-C [address] [place] [address] PCP - General 09/01/24 documented as of this encounter
--- OUTSIDE RECORDS SUMMARY | 2024-12-11 20:59 | XMS_ITS | Encounter Summary ---
[facility] Organization [facility] Address [address] [place] [address] Care Team Providers Care Shipping Clerk Packing Name Role Phone Jameson Fink MD Primary Care Provider [phone] Reason for Visit * Reason Comments INFLUENZA LIKE ILLNESS Encounter Details Date Type Department Care Team (Late st Contact Info) Description 12/11/2024 7:00 PM JUICE MIXER Office Visit [facility] [address] [place] [address] Ciara Hernandez MD [address] [place] [address] Weakness Social History Tobacco Use Types Packs/Day Years [...] on file documented as of this encounter Last Filed Vital Signs Vital Sign Reading Time Taken Comments Blood Pressure 155/65 12/11/2024 6:49 PM JUICE MIXER Pulse 102 12/11/2024 6:49 PM JUICE MIXER Temperature - - Respiratory Rate 16 12/11/2024 6:49 PM JUICE MIXER Oxygen Saturation 97% 12/11/2024 6:49 PM JUICE MIXER Inhaled Oxygen Concentration - - Weight - - Height - - Body Mass Index - - documented in this encounter Progress Notes * Ciara Hernandez MD - 12/11/2024 7:00 PM CST Katelyn C[facility] Provider Note Patient: Frankie Heller Age: 83 y.o. Date Of : 1940 Urgent Care Provider: Ciara Hernandez MD Date of Service: 12/11/2024 CHIEF COMPLAINT Chief Complaint Patient presents with INFLUENZA LIKE ILLNESS HISTORY OF PRESENT ILLNESS 83 y.o. year old male presents to the Urgent Care today for evaluation of Weakness and chills. Patient has been caring for his who has influenza A. His daughter went over to take care of him today and his and she said he went to take a nap and when she tried to get him up she could not even get him out of bed because he was so weak. She had to have her come and take him. He is in a wheelchair. He vomited once today. He has also had the chills. No documented fever. He does not have any ear pain, runny nose, sore throat or cough. He denies any abdominal pain. He does use a catheter but has not noticed any change in the color of the urine or having any urinary symptoms. He denies any back pain. Reviewed Nursing Notes: Juanita Royal, RN 12/11/24 1701 Signed Frankie Heller is a 83 y.o.male presents to the Urgent Care for INFLUENZA LIKE ILLNESS . Present with daughter and son-in-law today. Reports to him being around his spouse who tested positive for influenza. Developed weakness, chills, and vomiting today. Suspects he also has the flu. REVIEW OF SYSTEMS As reflected above in HPI. With open ended questioning the patient denies any other complaints or concerns for today's visit. PRIOR HISTORY Medications: Outpatient Medications Prior to Visit Medication Sig Dispense Refill acetaminophen (TYLENOL) 325 MG tablet Take 2 Tablets (650 mg) by mouth three times a day as needed for Pain or Fever. Indications: Fever, Pain atorvastatin (LIPITOR) 10 MG tablet Take 1 Tablet (10 mg) by mouth daily. clotrimazole-betamethasone (LOTRISONE) 1-0.05 % cream Apply topically two times daily as needed. finasteride (PROSCAR) 5 MG tablet Take 1 Tablet (5 mg) by mouth daily. 90 Tablet 3 furosemide (LASIX) 20 MG tablet Take 1 Tablet (20 mg) by mouth every Monday & Monday. Take on Monday and 26 Tablet 3 lidocaine (UROJET) 2 % prefilled syringe Apply to affected areas QID PRN metoprolol succinate (TOPROL XL) 25 MG 24 hour release tablet Take 1 Tablet (25 mg) by mouth daily.(Patient not taking: Reported on 12/11/2024) 30 Tablet 0 polyethylene glycol 3350 (GLYCOLAX) 17 GM/SCOOP powder Take 17 g by mouth daily. . sennosides-docusate sodium (SENOKOT S) 8.6-50 MG per tablet Take 1 Tablet by mouth two times a day at 8 AM and 12 noon. Indications: Constipation sulfamethoxazole-trimethoprim (BACTRIM DS) 800-160 MG tablet Take twice a day; start two days before your urodynamic procedure (Patient not taking: Reported on 11/13/2024) 14 Tablet 0 tamsulosin 0.4 MG CAPS capsule Take 1 Capsule (0.4 mg) by mouth daily. (Patient not taking: Reported on 10/22/2024) XARELTO 20 MG tablet Take 1 Tablet (20 mg) by mouth daily. No facility-administered medications prior to visit. Reviewed via [facility] Chart Review/CareEverywhere: Allergies Past Medical/Surgical History Family/Social History PHYSICAL EXAM Vitals Reviewed: BP (!) 155/65 (BP Location: Left Arm, BP Cuff Size: Regular - Long) Pulse (!) 102 Resp 16 SpO2 97% Alert and oriented in no apparent distress. Sitting in a wheelchair. Constitutional: Alert, Cooperative, Conversational HENT: Atraumatic, no obvious abnormality to the head/face Eyes: Eyes track movements normally during exam, no drainage, conjunctiva normal Neck: Moves neck freely and normally throughout exam, no visible abnormality Respiratory: No respiratory distress. SPO2 as above. Normal Effort. Talking in full sentences. CTA bilaterally. Cardiovascular: BP and Heart Rate as above. RRR without MRG. Musculoskeletal: Normal use of extremities throughout exam without evidence of abnormality. Skin: Dry, No evidence rash/abrasion/laceration on my exam. Psychiatric: Normal affect. Normal behavior. LABS - IMAGING - MEDICATIONS LABS/EKG: No results found for any visits on 12/11/24. IMAGING: No results found. INTERVENTIONS: MEDICAL DECISION MAKING Patient seen and assessed. Presented to Urgent Care for weakness, vomiting and chills. Patient doesnot have the typical symptoms of fever, runny nose or chest congestion. He is very weak and has to be in a wheelchair. His daughter was not able to get him up after his nap. Because of the severity of his symptoms and not having the typical influenza symptoms he will be sent to the ER for further evaluation and treatment. At this hour of the evening he does not need a full evaluation including influenza testing that would come back tonight to verify that this is influenza. He also needs to makesure that his symptoms are not caused by some other condition and I do think that he needs urine, chest x-ray and laboratory studies in addition to COVID and influenza testing. Due to his weakness hemight also need IV fluids. The daughter and son-in-law are in agreement with the plan and we will go immediately to the ER. ASSESSMENT & PLAN DIAGNOSIS: ICD-10-CM 1. Weakness R53.1 No orders of the defined types were placed in this encounter. DISPOSITION: [facility] There are no Patient Instructions on file for this visit. Ciara Hernandez MD [facility] E MIXER documented in this encounter Nursing Notes * Juanita Royal, RN - 12/11/2024 7:00 PM CST Frankie Heller is a 83 y.o.male presents to the Urgent Care for INFLUENZA LIKE ILLNESS . Present with daughter and son-in-law today. Reports to him being around his spouse who tested positive for influenza. Developed weakness, chills, and vomiting today. Suspects he also has the flu. E MIXER documented in this encounter Plan of Treatment Upcoming Encounters Date Type Department Care Team (Latest Contact Info) Description 12/16/2024 3:30 PM JUICE MIXER [facility]ointment [facility] [address] [place] [address] 02/13/2025 3:20 PM CDT Appointment [facility] [address] [place] [phone] [place] [address] [place] [address] 02/28/2025 3:30 PM CDT Appointment [facility] [address] [place] [address] 03/03/2025 8:45 AM CDT Hospital Encounter Operating Room [address] [place] [address] Milo Lowery MD [address] [place] [address] 03/03/2025 8:45 AM CDT - 03/03/2025 10:30 AM CDT Surgery Operating Room [address] [place] [address] Milo Lowery MD [address] [place] [address] TRANSURETHRAL RESECTION PROSTATE 04/01/2025 3:00 PM CDT Appointment [facility] [address] [place] [address] Lynn Valdez PA-C [address] [place] [address] Scheduled Procedures Name Priority Associated Diagnoses Date/Ti me TRANSURETHRAL RESECTION PROSTATE (SDEX) Same Day Recovery Benign prostatic hyperplasia with urinary retention 03/03/2025 8:45 AM CDT documented as of this encounter Visit Diagnoses Diagnosis Benign prostatic hyperplasia with urinary retention- Primary Weakness Other malaise and fatigue Benign prostatic hyperplasia with urinary retention documented in this encounter Care Teams Shipping Clerk Packing Relationship Specialty [place] [address] [place] [address] PCP - General Family Practice 09/18/24 documented as of this encounter
--- OUTSIDE RECORDS SUMMARY | 2024-12-11 20:59 | XMS_ITS | Encounter Summary ---
Author Organization [facility] Address [address] [place] [address] Care Team Providers Care Phone Counselor Name Role Phone Jameson Fink MD Primary Care Provider + [phone] Encounter Details Date Type Department Care Team (Late st Contact Info) Description 09/10/2024 Telephone [facility] [address] [facility] [place] [address] Sharee Sanchez MD [address] [place] [id number] Social History Tobacco Use Types Packs/Day Years Used Date Smoking Tobacco: Never Smokeless Tobacco: Never Alcohol Use Standard Drinks/Week Comments Yes 3 (1 standard drink = 0.6 oz pur e alcohol) PHQ-2 Answer Date Recorded PHQ-2 Score 0 08/12/2024 Sex and Gender Information Value Date Recorded Sex Assigned at Not on file Gender Identity Not on file Sexual Orientation Not on file documented as of this encounter Nursing Notes * Adia Price RN - 09/11/2024 11:22 AM CDT Per specific instruction on AVS: Please bladder scan after every void and no less than every 4 hours. Do intermittent catheterization for bladder scan > [address] salazar if unable to do self catheterization. Follow up with me on MondaySep 16 at 3:30 pm. LVM for care team to return call, or refer to specific instructions given on AVS. Adia Price RN 09/11/2024, 11:24 AM * Laura Thompson - 09/10/2024 2:55 PM CDT Patients facility [facility] called and is asking - When should they replace the patients salazar catheter - When to stop straight cathing Please call back at [phone] to inform the care team at his care facility documented in this encounter Plan of Treatment Upcoming Encounters Date Type Department Care Team (Latest Contact Info) Description 12/16/2024 3:30 PM QA REVIEWER Appointment [facility] [address] [place] [address] 02/13/2025 3:20 PM CDT Appointment [facility] [address] [place] [phone] [place] [address] [place] [address] 02/28/2025 3:30 PM CDT Appointment [facility] [address] [place] [address] 03/03/2025 8:45 AM CDT Hospital Encounter Operating Room [address] [place] [address] Milo Lowery MD [address] [place] [address] 03/03/2025 8:45 AM CDT - 03/03/2025 10:30 AM CDT Surgery Operating Room [address] [place] [address] Milo Lowery MD [address] [place] [address] TRANSURETHRAL RESECTION PROSTATE 04/01/2025 3:00 PM CDT Appointment [facility] [place] [address] [facility] [address] [place] [address] Lynn Valdez PA-C [address] [place], [place] [phone] Scheduled Procedures Name Priority Associated Diagnoses Date/Ti il TRANSURETHRAL RESECTION PROSTATE (SDEX) Same Day Recovery Benign prostatic hyperplasia with urinary retention 03/03/2025 8:45 AM CDT documented as of this encounter Visit Diagnoses Not on filedocumented in this encounter Care Teams Phone Counselor Relationship Specialty [place] [address] [place] [address] PCP - General Family Practice 09/18/24 documented as of this encounter
--- OUTSIDE RECORDS SUMMARY | 2024-12-11 20:59 | XMS_ITS | Encounter Summary ---
Author Organization [facility] Address [address] [place] [address]. [place] [address] Care Team Providers Care Stained Glass Glazier Name Role Phone Wilfrid Moses PA-C Primary Care Provider + [phone] Reason for Visit * Reason Onset Date Comments Appointment 09/03/2024 Patient being re ferred for IVETTE, Bladder outlet obstruction, Acute urinary retention by referring provider. Encounter Details Date Type Department Care Team (Late st Contact Info) Description 09/03/2024 Telephone [facility] [address] [place] [address] None Appointment (Patient being referred for IVETTE, Bladder outlet obstruction, Acute urinary retention by referring provider. ////) Social History Tobacco Use Types Packs/Day Years [...] in an abandoned building, in an overnight prison, or couch-surfing.) No 08/31/2024 Are you worried [...] on file documented as of this encounter Miscellaneous Notes * Telephone Encounter - Isa Lainey - 09/03/2024 3:27 PM CDT [facility] Call Center Phone Message May a detailed message be left on voicemail: yes Reason for Call: Other: Patient being referred for IVETTE, Bladder outlet obstruction, Acute urinary retention by referring provider. Per Pt, he is in a transitional care unit and cannot go home until this has been resolved and the catheter is removed. Patient states that he thinks he will be there for two weeks. Sending encounter message for review and follow-up with Pt for scheduling. Thank you! Action Taken: Message routed to: Other: [facility] Travel Screening: Not Applicable Date of Service: documented in this encounter Plan of Treatment Not on file documented as of this encounter Visit Diagnoses Not on filedocumented in this encounter Care Teams Stained Glass Glazier Relationship Specialty Start Date End Date Wilfrid Moses PA-C [address] [place] [address] PCP - General 09/01/24 documented as of this encounter
[2024-12-11] MEDS: 0.9 % SODIUM CHLORIDE 500 ML 500 ML IV (21:11)
[2024-12-11 21:15] LABS: Lactate Sepsis w/Reflex* 1.9 mmol/L (0.5-1.9)
[2024-12-11 21:16] LABS: Hematocrit 40.5 % (37.0-53.0); Hemoglobin* 13.2 gm/dL (13.5-17.5); Immature Granulocytes Abs Auto 0.03 K/uL (0.00-0.30); Immature Granulocytes Pct Auto 0.5 %; Lymphocytes Percent Auto 1.6 % (20-44); Mean Corpuscular HGB Conc 33 gm/dL (32-36); Mean Corpuscular Hemoglobin 30 pg (26-34); Mean Corpuscular Volume 91 fL (80-100); Neutrophils Percent Auto 94.9 % (42.0-72.0); Platelet Count* 188 K/uL (140-440); RDW Coefficient of Variation % 13.1 % (11.5-15.5); Red Blood Count 4.43 m/uL (4.30-5.90); White Blood Count* 6.07 K/uL (4.50-11.00)
[2024-12-11 21:23] LABS: Slide Review Reflex No
[2024-12-11 21:33] LABS: Albumin* 4.1 g/dL (3.3-5.0)
[2024-12-11 21:33] LABS: PCR FLU A Negative PCR FLU A (Negative); PCR FLU B Negative PCR FLU B (Negative); PCR RSV Negative PCR RSV (Negative); SARS PCR* Negative SARS-CoV-2 (Negative)
[2024-12-11 21:36] LABS: Alanine Aminotransferase* 17 U/L (4-50); Alkaline Phosphatase* 55 U/L (40-150); Aspartate Amino Transferase* 25 U/L (12-35); Bilirubin Direct* 0.2 mg/dL (0.0-0.5); Bilirubin Total* 0.7 mg/dL (0.1-1.5); Magnesium* 2.2 mg/dL (1.5-2.6); Total Protein* 6.7 g/dL (6.0-8.3)
[2024-12-11 21:54] LABS: Procalcitonin* 0.34 ng/mL (<0.50)
[2024-12-11 21:58] LABS: Chloride* 101 mmol/L (96-114)
[2024-12-11 21:59] LABS: Potassium* 4.1 mmol/L (3.6-5.1); Sodium* 135 mmol/L (135-149)
[2024-12-11 22:01] LABS: Creatinine* 1.1 mg/dL (0.5-1.5); Est. Creatinine Clearance* 55.85; Estimated Glomerular Filt Rate 67 ml/min
[2024-12-11 22:02] LABS: Anion Gap 8 mEq/L (7-15); Blood Urea Nitrogen* 23 mg/dL (7-30); Carbon Dioxide* 26 mmol/L (20-32); Glucose* 118 mg/dL (60-115)
[2024-12-11 22:03] LABS: Calcium* 8.9 mg/dL (8.4-10.6)
[2024-12-11 22:05] LABS: C Reactive Protein* 1.8 mg/dL (0.5-1.0)
[2024-12-11 22:16] LABS: Troponin I* < 0.01 ng/mL (0.01-0.04)
--- NOTE | 2024-12-11 22:16 | CRLHL7_ITS ---
For Patients: As a result of the Century Cures Act, medical imaging exams and procedure reports are released immediately into your electronic medical record. You may view this report before your referring provider. If you have questions, please contact your health care provider. INDICATION: Weakness. TECHNIQUE: Chest 1 view. COMPARISON: None. FINDINGS: Cardiovascular and mediastinum: Heart size and vasculature are normal in caliber and appearance. Lungs and pleural spaces: Lungs are clear. No sign of infiltrate or mass. No sign of pleural effusion. No pneumothorax. Bones and soft tissues: No significant findings. IMPRESSION: Negative chest. Dictated by Jori Dawson MD @ 12/11/2024 11:28:24 PM (Electronically Signed)
--- NOTE | 2024-12-11 22:17 | ED_ITS ---
HPI - General Adult General Date Seen: 12/11/24 <Laurita Simental MD - Last Filed: 12/16/24 10:06> Chief complaint: Weakness <Laurita Simental MD - Last Filed: 12/16/24 10:06> Stated complaint: Weakness, flu symptoms, vomit <Laurita Simental MD - Last Filed: 12/16/24 10:06> Time Seen by Provider: 12/11/24 20:24 <Laurita Simental MD - Last Filed: 12/16/24 10:06> History of Present Illness HPI narrative: Patient is an 83-year-old male here with his daughter for evaluation of weakness, tactile fevers, vomiting. He lives in [place], his and he live in a facility where she lives in Memory Care and he lives independently. He generally gets around with a walker. The past couple of days he has felt poorly he has felt generalized weakness, he has felt hot and cold although they have not documented a fever. And he has had some vomiting. He denies cough or congestion, has not had chest pain or shortness of breath. Of note, his was just hospitalized for couple of days at [facility] for influenza A. She was actually in the ER for her entire admission, never got a bed in the hospital so he was in the ER a lot with her. She is back at her memory care unit but he is not able to function right now at his independent living unit. They presume that he has influenza based on exposure and symptoms. He does have a indwelling Watson catheter which has been in for couple of months. He has not had problems with urinary tract infection. It sounds like it was placed for urinary retention, and he has a procedure scheduled in February with Urology. Apparently they had originally gone to [facility] but noted that it was ?packed, so they decided to try here. <Laurita Simental MD - Last Filed: 12/16/24 10:06> Related Data Home medications: Home Medications ?Medication ?Instructions ?Recorded ?Confirmed atorvastatin 10 mg tablet 10 mg PO DAILY 12/11/24 12/11/24 clotrimazole-betamethasone 1 1 applic topical Q12H PRN 12/11/24 12/12/24 %-0.05 % topical cream finasteride 5 mg tablet 5 mg PO DAILY 12/11/24 12/11/24 rivaroxaban 20 mg tablet (Xarelto) 20 mg PO DAILY 12/11/24 12/11/24 furosemide 40 mg tablet 40 mg PO DAILY 12/12/24 12/12/24 Previous Rx's ?Medication ?Instructions ?Recorded oseltamivir 75 mg capsule 75 mg PO DAILY #7 caps 12/14/24 <Laurita Simental MD - Last Filed: 12/16/24 10:06> Allergies/adverse reactions: Allergies Allergy/AdvReac Type Severity Reaction Status Date / Time No Known Drug Allergies Allergy Verified 12/11/24 21:18 <Laurita Simental MD - Last Filed: 12/16/24 10:06> Review of Systems Status of ROS: Reports: 10 or more systems reviewed and unremarkable except as noted in History and below <Laurita Simental MD - Last Filed: 12/16/24 10:06> [facility] Medical History: Medical History (Updated 12/15/24 @ 12:49 by Shruthi Marcelino MD) BPH (benign prostatic hyperplasia) ?N40.0 - Benign prostatic hyperplasia without lower urinary tract symptoms (ICD-10) Peripheral neuropathy ?G62.9 - Polyneuropathy, unspecified (ICD-10) Sepsis ?A41.9 - Sepsis, unspecified organism (ICD-10) Pulmonary embolism ?I26.99 - Other pulmonary embolism without acute cor pulmonale (ICD-10) Paroxysmal atrial fibrillation (09/01/24) ?I48.0 - Paroxysmal atrial fibrillation (ICD-10) NSTEMI (non-ST elevated myocardial infarction) (08/30/24) ?I21.4 - Non-ST elevation (NSTEMI) myocardial infarction (ICD-10) Acute kidney injury (08/30/24) ?N17.9 - Acute kidney failure, unspecified (ICD-10) <Laurita Simental MD - Last Filed: 12/16/24 10:06> Surgical History: Surgical History (Updated 12/12/24 @ 10:53 by Valerie Moreno MD) History of carpal tunnel surgery ?Z98.890 - Other specified postprocedural states (ICD-10) History of back surgery ?Z98.890 - Other specified postprocedural states (ICD-10) <Laurita Simental MD - Last Filed: 12/16/24 10:06> Social History: Social History (Updated 12/12/24 @ 10:50 by Valerie Moreno MD) Narrative: Lives in Long-Term apartment, in Memory Care. Daughter Abdulaziz would be MDM if needed. Retired [employer]. Nonsmoker, 3-4 beers/week, Full Code status. What is your current living situation?: I presently have a place to live Problems where you live: no known problems Problems where you live details: none In the past 12 months, utilities in danger of being shut off: no In past 12 months, lack of transportation kept you from medical appts, meetings, work, or getting things needed for daily living: no In the past 12 mos, have been you worried that your food would run out before you had money to buy more?: never true In the past 12 mos, the food you bought just didn't last and you didn't have money to buy more?: never true Highest level of school completed/degree received: Master's degree Smoking Status: Former smoker What tobacco products do you use: cigarettes Smoking quit date/years: >15 years ago Do you use any of these nicotine containing products: None Second hand tobacco smoke exposure: No How often do you have a drink containing alcohol: 2-3 times a week Alcohol type: beer How many standard drinks containing alcohol do you have on a typical day: 1 or 2 How often do you have six or more drinks on one occasion: Never AUDIT-C Alcohol total score: 3 Non-prescribed substance use: denies use Caffeine: Yes (coffee) How often does anyone, including family, friends and others, physically hurt you : never How often does anyone, including family, friends and others, insult or talk down to you: never How often does anyone, including family, friends and others, threaten you with harm: never How often does anyone, including family, friends and others, scream or curse at you: never service: No <Laurita Simental MD - Last Filed: 12/16/24 10:06> Exam Narrative: Exam Narrative: Vital signs reviewed In general, alert, nontoxic elderly male. He looks a little fatigued. Head: Normocephalic, atraumatic. Eyes: Sclera clear. Pupils equal and reactive. ENT: Mucous membranes moist. Neck: Supple without adenopathy. Heart: Borderline tachycardic, regular, no murmur. Lungs: Clear. No increased work of breathing, crackles or wheezes. Abdomen: Soft, nontender to palpation. Extremities: Well perfused, pulses intact. No significant edema. Neurologic: Alert, conversant. Speech fluent, face symmetric. Moves all extremities equally. Skin: Warm, dry well perfused. Affect: Normal. <Laurita Simental MD - Last Filed: 12/16/24 10:06> Const: Vital Signs, click to edit/add: Vital Signs - 24 hr 12/11/24 20:17 12/11/24 23:44 12/12/24 00:15 Temperature 99.1 F 100.6 F H Pulse Rate 98 Pulse Rate [Pulse Oximeter] 100 100 Respiratory Rate 18 16 Blood Pressure Blood Pressure [Ri ght Forearm] 148/74 H 122/67 Pulse Oximetry 97 97 [facility] 12/12/24 00:30 12/12/24 00:45 12/12/24 01:00 Temperature Pulse Rate 94 104 H 97 Pulse Rate [Pulse Oximeter] Respiratory Rate Blood Pressure Blood Pressure [Ri ght Forearm] Pulse Oximetry 96 95 95 [facility] 12/12/24 01:15 12/12/24 01:30 12/12/24 02:00 Temperature Pulse Rate 92 91 99 Pulse Rate [Pulse Oximeter] Respiratory Rate Blood Pressure Blood Pressure [Ri ght Forearm] Pulse Oximetry 97 96 98 [facility] 02:15 12/12/24 02:45 12/12/24 03:00 Temperature Pulse Rate 96 94 90 Pulse Rate [Pulse Oximeter] Respiratory Rate Blood Pressure Blood Pressure [Ri ght Forearm] Pulse Oximetry 98 94 95 [facility] 03:15 12/12/24 03:30 12/12/24 03:51 Temperature Pulse Rate 103 H 90 101 H Pulse Rate [Pulse Oximeter] Respiratory Rate Blood Pressure Blood Pressure [Ri ght Forearm] Pulse Oximetry 95 94 93 [facility] 04:00 12/12/24 04:15 12/12/24 04:30 Temperature Pulse Rate 92 88 80 Pulse Rate [Pulse Oximeter] Respiratory Rate Blood Pressure Blood Pressure [Ri ght Forearm] Pulse Oximetry 92 93 93 Oxygen Delivery Me thod 12/12/24 04:48 12/12/24 04:49 12/12/24 05:00 Temperature 100.8 F H Pulse Rate 95 105 H 86 Pulse Rate [Pulse Oximeter] Respiratory Rate 16 Blood Pressure 110/61 Blood Pressure [Ri ght Forearm] Pulse Oximetry 94 92 93 Oxygen Delivery Me thod 12/12/24 05:15 12/12/24 05:30 12/12/24 05:32 Temperature 100.8 F H Pulse Rate 82 84 Pulse Rate [Pulse Oximeter] Respiratory Rate Blood Pressure Blood Pressure [Ri ght Forearm] Pulse Oximetry 93 94 Oxygen Delivery Me thod 12/12/24 05:45 12/12/24 06:00 12/12/24 06:15 Temperature Pulse Rate 83 92 84 Pulse Rate [Pulse Oximeter] Respiratory Rate Blood Pressure Blood Pressure [Ri ght Forearm] Pulse Oximetry 94 94 91 Oxygen Delivery Me thod 12/12/24 06:30 12/12/24 06:45 12/12/24 07:00 Temperature Pulse Rate 85 83 89 Pulse Rate [Pulse Oximeter] Respiratory Rate Blood Pressure Blood Pressure [Ri ght Forearm] Pulse Oximetry 90 92 90 Oxygen Delivery Me thod 12/12/24 07:15 12/12/24 07:30 12/12/24 07:33 Temperature 99.0 F Pulse Rate 83 87 91 Pulse Rate [Pulse Oximeter] Respiratory Rate 16 Blood Pressure 98/62 Blood Pressure [Ri ght Forearm] Pulse Oximetry 92 93 93 Oxygen Delivery Me thod <Laurita Simental MD - Last Filed: 12/16/24 10:06> Vital Signs, click to edit/add: Vital Signs - 24 hr 12/11/24 20:17 12/11/24 23:44 12/12/24 00:15 Temperature 99.1 F 100.6 F H Pulse Rate 98 Pulse Rate [Pulse Oximeter] 100 100 Respiratory Rate 18 16 Blood Pressure Blood Pressure [Ri ght Forearm] 148/74 H 122/67 Pulse Oximetry 97 97 99 Oxygen Delivery Me thod Room Air Room Air 12/12/24 00:30 12/12/24 00:45 12/12/24 01:00 Temperature Pulse Rate 94 104 H 97 Pulse Rate [Pulse Oximeter] Respiratory Rate Blood Pressure Blood Pressure [Ri ght Forearm] Pulse Oximetry 96 95 95 Oxygen Delivery Me thod 12/12/24 01:15 12/12/24 01:30 12/12/24 02:00 Temperature Pulse Rate 92 91 99 Pulse Rate [Pulse Oximeter] Respiratory Rate Blood Pressure Blood Pressure [Ri ght Forearm] Pulse Oximetry 97 96 98 Oxygen Delivery Me thod 12/12/24 02:15 12/12/24 02:45 12/12/24 03:00 Temperature Pulse Rate 96 94 90 Pulse Rate [Pulse Oximeter] Respiratory Rate Blood Pressure Blood Pressure [Ri ght Forearm] Pulse Oximetry 98 94 95 Oxygen Delivery Me thod 12/12/24 03:15 12/12/24 03:30 12/12/24 03:51 Temperature Pulse Rate 103 H 90 101 H Pulse Rate [Pulse Oximeter] Respiratory Rate Blood Pressure Blood Pressure [Ri ght Forearm] Pulse Oximetry 95 94 93 Oxygen Delivery Me thod 12/12/24 04:00 12/12/24 04:15 12/12/24 04:30 Temperature Pulse Rate 92 88 80 Pulse Rate [Pulse Oximeter] Respiratory Rate Blood Pressure Blood Pressure [Ri ght Forearm] Pulse Oximetry 92 93 93 Oxygen Delivery Me thod 12/12/24 04:48 12/12/24 04:49 12/12/24 05:00 Temperature 100.8 F H Pulse Rate 95 105 H 86 Pulse Rate [Pulse Oximeter] Respiratory Rate 16 Blood Pressure 110/61 Blood Pressure [Ri ght Forearm] Pulse Oximetry 94 92 93 Oxygen Delivery Me thod 12/12/24 05:15 12/12/24 05:30 12/12/24 05:32 Temperature 100.8 F H Pulse Rate 82 84 Pulse Rate [Pulse Oximeter] Respiratory Rate Blood Pressure Blood Pressure [Ri ght Forearm] Pulse Oximetry 93 94 Oxygen Delivery Me thod 12/12/24 05:45 12/12/24 06:00 12/12/24 06:15 Temperature Pulse Rate 83 92 84 Pulse Rate [Pulse Oximeter] Respiratory Rate Blood Pressure Blood Pressure [Ri ght Forearm] Pulse Oximetry 94 94 91 Oxygen Delivery Me thod 12/12/24 06:30 12/12/24 06:45 12/12/24 07:00 Temperature Pulse Rate 85 83 89 Pulse Rate [Pulse Oximeter] Respiratory Rate Blood Pressure Blood Pressure [Ri ght Forearm] Pulse Oximetry 90 92 90 Oxygen Delivery Me thod 12/12/24 07:15 12/12/24 07:30 12/12/24 07:33 Temperature 99.0 F Pulse Rate 83 87 91 Pulse Rate [Pulse Oximeter] Respiratory Rate 16 Blood Pressure 98/62 Blood Pressure [Ri ght Forearm] Pulse Oximetry 92 93 93 Oxygen Delivery Me thod <Christi Valentin MD - Last Filed: 12/12/24 07:44> Documenting provider has reviewed patient's vital signs: yes <Laurita Simental MD - Last Filed: 12/16/24 10:06> Course Course ED Course: Both patient and his daughter feel he is not able to manage at home right now and that he will need a day or 2 in the hospital. Diagnostic considerations would include bacterial or viral infections such as influenza COVID, UTI, dehydration, metabolic derangement, pneumonia, acute coronary syndrome among others. His workup is actually entirely normal here. His white blood cell count is 6, hemoglobin is 13.2 though he does have a left shift with 95% neutrophils. LFTs are normal, troponin is less than 0.01, CRP is minimally elevated at 1.8, procalcitonin is normal. Urinalysis is fairly unremarkable for an indwelling catheter, 2-5 red cells and 5-10 white blood cells with few bacteria. His viral swab is entirely negative. Chest x-ray is pending at this time. I do not have a clear explanation for his symptoms although it is possible that he has influenza and is falsely negative. Will likely board in the ER tonight as we do not have any available beds in the hospital. Reassess in the morning, perhaps with some hydration he will feel strong enough to go home. I do not see any medical requirement for admission aside from weakness. If not improved overnight would anticipate admission for influenza like illness and weakness. Chest x-ray is negative as well. He also had an EKG, this shows a sinus rhythm, ventricular rate of 98 beats per minute, he has a right bundle branch block, no acute ST segment changes. <Laurita Simental MD - Last Filed: 12/16/24 10:06> Reevaluation(s) Time of Reevaluation #1: 07:43 <Christi Valentin MD - Last Filed: 12/12/24 07:44> Reevaluation #1: Dr. Clayton- I assumed care for patient overnight. He still remains weak. Is requiring 1-2 assist for all cares. He does not have anyone to care for him at home. He is not requiring oxygen, likely also influenza. Did have a fever overnight but vitals have remained stable. I spoke with the hospitalist, she is accepting of an observation admission. <Christi Valentin MD - Last Filed: 12/12/24 07:44> Vital Signs Vital signs: Initial Vital Signs Temperature 99.1 F 12/11/24 20:17 Temperature Source Temporal Artery Scan 12/11/24 20:17 Pulse Rate 100 12/11/24 20:17 Pulse Rhythm Regular 12/11/24 20:17 Respiratory Rate 18 12/11/24 20:17 Blood Pressure 148/74 H 12/11/24 20:17 Blood Pressure Mean 98 12/11/24 20:17 Blood Pressure Position Sitting 12/11/24 20:17 Pulse Oximetry 97 12/11/24 20:17 Oxygen Delivery Method Room Air 12/11/24 20:17 Vital Signs Temperature 99.1 F 12/11/24 20:17 Pulse Rate 100 12/11/24 20:17 Respiratory Rate 18 12/11/24 20:17 Blood Pressure 148/74 H 12/11/24 20:17 Pulse Oximetry 97 12/11/24 20:17 Oxygen Delivery Method Room Air 12/11/24 20:17 Temperature 97.6 F 12/15/24 11:00 Pulse Rate 73 12/15/24 11:00 Respiratory Rate 18 12/15/24 11:00 Blood Pressure 134/65 12/15/24 11:00 Pulse Oximetry 95 12/15/24 11:00 Oxygen Delivery Method Room Air 12/15/24 11:00 <Laurita Simental MD - Last Filed: 12/16/24 10:06> Initial Vital Signs Temperature 99.1 F 12/11/24 20:17 Temperature Source Temporal Artery Scan 12/11/24 20:17 Pulse Rate 100 12/11/24 20:17 Pulse Rhythm Regular 12/11/24 20:17 Respiratory Rate 18 12/11/24 20:17 Blood Pressure 148/74 H 12/11/24 20:17 Blood Pressure Mean 98 12/11/24 20:17 Blood Pressure Position Sitting 12/11/24 20:17 Pulse Oximetry 97 12/11/24 20:17 Oxygen Delivery Method Room Air 12/11/24 20:17 Vital Signs Temperature 99.1 F 12/11/24 20:17 Pulse Rate 100 12/11/24 20:17 Respiratory Rate 18 12/11/24 20:17 Blood Pressure 148/74 H 12/11/24 20:17 Pulse Oximetry 97 12/11/24 20:17 Oxygen Delivery Method Room Air 12/11/24 20:17 Temperature 97.6 F 12/15/24 11:00 Pulse Rate 73 12/15/24 11:00 Respiratory Rate 18 12/15/24 11:00 Blood Pressure 134/65 12/15/24 11:00 Pulse Oximetry 95 12/15/24 11:00 Oxygen Delivery Method Room Air 12/15/24 11:00 <Christi Valentin MD - Last Filed: 12/12/24 07:44> Medications Administered Medications: Discontinued Medications Generic Name Dose Route Start Last Admin Trade Name Freq PRN Reason Stop Dose Admin Acetaminophen 650 mg 12/12/24 05:26 12/12/24 05:32 Acetaminophen 325 Mg Tablet PO 650 mg Q6H PRN Administration Fever Acetaminophen 975 mg 12/12/24 10:07 12/13/24 02:15 Acetaminophen 325 Mg Tablet PO 975 mg Q6H PRN Administration Atorvastatin Calcium 10 mg 12/13/24 09:00 12/15/24 08:59 Atorvastatin 10 Mg Tablet PO 10 mg DAILY MONA Administration Finasteride 5 mg 12/13/24 09:00 12/15/24 08:59 Finasteride 5 Mg Tablet PO 5 mg DAILY MONA Administration Sodium Chloride 500 mls @ 500 mls/hr 12/11/24 20:39 12/11/24 22:23 0.9 % Sodium Chloride 500 Ml IV 12/11/24 21:38 Infused .Q1H ONE Infusion Sodium Chloride 1,000 mls @ 75 mls/hr 12/11/24 23:39 12/12/24 12:58 0.9 % Sodium Chloride 1000 Ml IV Infused .[id number] MONA Infusion Oseltamivir Phosphate 75 mg 12/12/24 10:23 12/15/24 08:59 Oseltamivir Phosphate 75 Mg Capsule PO 75 mg DAILY MONA Administration Potassium Bicarbonate 25 meq 12/13/24 17:45 12/13/24 23:42 Potassium Bicarb 25 Meq Effervescent Tab PO 12/13/24 19:46 Not Given Q2H MONA Potassium Bicarbonate 25 meq 12/13/24 21:30 12/13/24 21:49 Potassium Bicarb 25 Meq Effervescent Tab PO 12/13/24 21:31 25 meq Q2H MONA Administration Rivaroxaban 20 mg 12/13/24 09:00 12/15/24 08:59 Rivaroxaban 10 Mg Tablet PO 20 mg DAILY MONA Administration Sodium Chloride 5 ml 12/12/24 21:00 12/15/24 08:59 Sodium Chloride 0.9 % (Flush) 10 Ml Syringe IVF 5 ml BID MONA Administration <Laurita Simental MD - Last Filed: 12/16/24 10:06> Discontinued Medications Generic Name Dose Route Start Last Admin Trade Name Freq PRN Reason Stop Dose Admin Acetaminophen 650 mg 12/12/24 05:26 12/12/24 05:32 Acetaminophen 325 Mg Tablet PO 650 mg Q6H PRN Administration Fever Acetaminophen 975 mg 12/12/24 10:07 12/13/24 02:15 Acetaminophen 325 Mg Tablet PO 975 mg Q6H PRN Administration Atorvastatin Calcium 10 mg 12/13/24 09:00 12/15/24 08:59 Atorvastatin 10 Mg Tablet PO 10 mg DAILY MONA Administration Finasteride 5 mg 12/13/24 09:00 12/15/24 08:59 Finasteride 5 Mg Tablet PO 5 mg DAILY MONA Administration Sodium Chloride 500 mls @ 500 mls/hr 12/11/24 20:39 12/11/24 22:23 0.9 % Sodium Chloride 500 Ml IV 12/11/24 21:38 Infused .Q1H ONE Infusion Sodium Chloride 1,000 mls @ 75 mls/hr 12/11/24 23:39 12/12/24 12:58 0.9 % Sodium Chloride 1000 Ml IV Infused .[id number] MONA Infusion Oseltamivir Phosphate 75 mg 12/12/24 10:23 12/15/24 08:59 Oseltamivir Phosphate 75 Mg Capsule PO 75 mg DAILY MONA Administration Potassium Bicarbonate 25 meq 12/13/24 17:45 12/13/24 23:42 Potassium Bicarb 25 Meq Effervescent Tab PO 12/13/24 19:46 Not Given Q2H MONA Potassium Bicarbonate 25 meq 12/13/24 21:30 12/13/24 21:49 Potassium Bicarb 25 Meq Effervescent Tab PO 12/13/24 21:31 25 meq Q2H MONA Administration Rivaroxaban 20 mg 12/13/24 09:00 12/15/24 08:59 Rivaroxaban 10 Mg Tablet PO 20 mg DAILY MONA Administration Sodium Chloride 5 ml 12/12/24 21:00 12/15/24 08:59 Sodium Chloride 0.9 % (Flush) 10 Ml Syringe IVF 5 ml BID MONA Administration <Christi Valentin MD - Last Filed: 12/12/24 07:44> Medical Decision Making Lab Data Labs: Lab Results 12/11/24 12/11/24 12/11/24 Range/Units 20:43 21:10 Unknown WBC 6.07 (4.50-11.00) K/uL RBC 4.43 (4.30-5.90) m/uL Hgb 13.2 L (13.5-17.5) gm/dL Hct 40.5 (37.0-53.0) % MCV 91 (80-100) fL MCH 30 (26-34) pg MCHC 33 (32-36) gm/dL RDW Coeff of Yoav 13.1 (11.5-15.5) % Plt Count 188 (140-440) K/uL Neut % (Auto) 94.9 H (42.0-72.0) % Lymph % (Auto) 1.6 L (20-44) % Castro % (Auto) 3.0 (0.0-11.0) % Eos % (Auto) 0.0 (0.0-7.0) % Baso % (Auto) 0.0 (0.0-3.0) % Neut # (Auto) 5.80 (1.7-7.0) K/uL Lymph # (Auto) 0.10 L (0.90-2.90) K/uL Castro # (Auto) 0.20 (0.00-0.90) K/UL Eos # (Auto) 0.00 (0.00-0.50) K/uL Baso # (Auto) 0.00 (0.00-0.30) K/uL Abs Immat Gran (auto) 0.03 (0.00-0.30) K/uL Imm/Tot Granulo (auto) 0.5 % Sodium 135 (135-149) mmol/L Potassium 4.1 (3.6-5.1) mmol/L Chloride 101 (96-114) mmol/L Carbon Dioxide 26 (20-32) mmol/L Anion Gap 8 (7-15) mEq/L BUN 23 (7-30) mg/dL Creatinine 1.1 (0.5-1.5) mg/dL Estimated Creat Clear 55.85 Estimated GFR 67 ml/min Glucose 118 H (60-115) mg/dL Lactate 1.9 (0.5-1.9) mmol/L Calcium 8.9 (8.4-10.6) mg/dL Magnesium 2.2 (1.5-2.6) mg/dL Total Bilirubin 0.7 (0.1-1.5) mg/dL Direct Bilirubin 0.2 (0.0-0.5) mg/dL AST 25 (12-35) U/L ALT 17 (4-50) U/L Alkaline Phosphatase 55 (40-150) U/L Troponin I < 0.01 L (0.01-0.04) ng/mL C-Reactive Protein 1.8 H (0.5-1.0) mg/dL Total Protein 6.7 (6.0-8.3) g/dL Albumin 4.1 (3.3-5.0) g/dL Procalcitonin 0.34 (<0.50) ng/mL Urine Color Yellow (Yellow) Urine Appearance Cloudy A (Clear) Urine pH 5.5 (5.0-8.5) Ur Specific Thurmond >= 1.030 (1.000-1.030) Urine Protein Trace A (Negative) Urine Glucose (UA) Negative (Negative) Urine Ketones Negative (Negative) Urine Blood 1+ A (Negative) Urine Nitrite Negative (Negative) Urine Bilirubin Negative (Negative) Urine Urobilinogen 0.2 (0.2-1.0) Ur Leukocyte Esterase 1+ A (Negative) Urine RBC 2-5 A (0-2) Urine WBC 5-10 A (0-5) Ur Squamous Epith Cells Few (None-Few) Urine Bacteria Few A (None) SARS-CoV-2 (PCR) Negative SARS-CoV-2 (Negative) Influenza Type A (PCR) Negative PCR FLU A (Negative) Influenza Type B (PCR) Negative PCR FLU B (Negative) RSV (PCR) Negative PCR RSV (Negative) 12/13/24 Range/Units 06:53 WBC 3.22 L (4.50-11.00) K/uL RBC 4.00 L (4.30-5.90) m/uL Hgb 12.0 L (13.5-17.5) gm/dL Hct 35.8 L (37.0-53.0) % MCV 90 (80-100) fL MCH 30 (26-34) pg MCHC 34 (32-36) gm/dL RDW Coeff of Yoav 12.8 (11.5-15.5) % Plt Count 147 (140-440) K/uL Neut % (Auto) 58.5 (42.0-72.0) % Lymph % (Auto) 27.6 (20-44) % Castro % (Auto) 12.1 H (0.0-11.0) % Eos % (Auto) 0.6 (0.0-7.0) % Baso % (Auto) 0.3 (0.0-3.0) % Neut # (Auto) 1.90 (1.7-7.0) K/uL Lymph # (Auto) 0.90 (0.90-2.90) K/uL Castro # (Auto) 0.40 (0.00-0.90) K/UL Eos # (Auto) 0.00 (0.00-0.50) K/uL Baso # (Auto) 0.00 (0.00-0.30) K/uL Abs Immat Gran (auto) 0.00 (0.00-0.30) K/uL Imm/Tot Granulo (auto) 0.9 % Sodium 134 L (135-149) mmol/L Potassium 3.5 L (3.6-5.1) mmol/L Chloride 107 (96-114) mmol/L Carbon Dioxide 24 (20-32) mmol/L Anion Gap 3 L (7-15) mEq/L BUN 18 (7-30) mg/dL Creatinine 1.0 (0.5-1.5) mg/dL Estimated Creat Clear 61.43 Estimated GFR 75 ml/min Glucose 84 (60-115) mg/dL Lactate (0.5-1.9) mmol/L Calcium 7.9 L (8.4-10.6) mg/dL Magnesium (1.5-2.6) mg/dL Total Bilirubin 0.5 (0.1-1.5) mg/dL Direct Bilirubin (0.0-0.5) mg/dL AST 26 (12-35) U/L ALT 16 (4-50) U/L Alkaline Phosphatase 51 (40-150) U/L Troponin I (0.01-0.04) ng/mL C-Reactive Protein 5.3 H (0.5-1.0) mg/dL Total Protein 5.6 L (6.0-8.3) g/dL Albumin 3.2 L (3.3-5.0) g/dL Procalcitonin (<0.50) ng/mL Urine Color (Yellow) Urine Appearance (Clear) Urine pH (5.0-8.5) Ur Specific Thurmond (1.000-1.030) Urine Protein (Negative) Urine Glucose (UA) (Negative) Urine Ketones (Negative) Urine Blood (Negative) Urine Nitrite (Negative) Urine Bilirubin (Negative) Urine Urobilinogen (0.2-1.0) Ur Leukocyte Esterase (Negative) Urine RBC (0-2) Urine WBC (0-5) Ur Squamous Epith Cells (None-Few) Urine Bacteria (None) SARS-CoV-2 (PCR) (Negative) Influenza Type A (PCR) (Negative) Influenza Type B (PCR) (Negative) RSV (PCR) (Negative) <Laurita Simental MD - Last Filed: 12/16/24 10:06> Lab Results 12/11/24 12/11/24 12/11/24 Range/Units 20:43 21:10 Unknown WBC 6.07 (4.50-11.00) K/uL RBC 4.43 (4.30-5.90) m/uL Hgb 13.2 L (13.5-17.5) gm/dL Hct 40.5 (37.0-53.0) % MCV 91 (80-100) fL MCH 30 (26-34) pg MCHC 33 (32-36) gm/dL RDW Coeff of Yoav 13.1 (11.5-15.5) % Plt Count 188 (140-440) K/uL Neut % (Auto) 94.9 H (42.0-72.0) % Lymph % (Auto) 1.6 L (20-44) % Castro % (Auto) 3.0 (0.0-11.0) % Eos % (Auto) 0.0 (0.0-7.0) % Baso % (Auto) 0.0 (0.0-3.0) % Neut # (Auto) 5.80 (1.7-7.0) K/uL Lymph # (Auto) 0.10 L (0.90-2.90) K/uL Castro # (Auto) 0.20 (0.00-0.90) K/UL Eos # (Auto) 0.00 (0.00-0.50) K/uL Baso # (Auto) 0.00 (0.00-0.30) K/uL Abs Immat Gran (auto) 0.03 (0.00-0.30) K/uL Imm/Tot Granulo (auto) 0.5 % Sodium 135 (135-149) mmol/L Potassium 4.1 (3.6-5.1) mmol/L Chloride 101 (96-114) mmol/L Carbon Dioxide 26 (20-32) mmol/L Anion Gap 8 (7-15) mEq/L BUN 23 (7-30) mg/dL Creatinine 1.1 (0.5-1.5) mg/dL Estimated Creat Clear 55.85 Estimated GFR 67 ml/min Glucose 118 H (60-115) mg/dL Lactate 1.9 (0.5-1.9) mmol/L Calcium 8.9 (8.4-10.6) mg/dL Magnesium 2.2 (1.5-2.6) mg/dL Total Bilirubin 0.7 (0.1-1.5) mg/dL Direct Bilirubin 0.2 (0.0-0.5) mg/dL AST 25 (12-35) U/L ALT 17 (4-50) U/L Alkaline Phosphatase 55 (40-150) U/L Troponin I < 0.01 L (0.01-0.04) ng/mL C-Reactive Protein 1.8 H (0.5-1.0) mg/dL Total Protein 6.7 (6.0-8.3) g/dL Albumin 4.1 (3.3-5.0) g/dL Procalcitonin 0.34 (<0.50) ng/mL Urine Color Yellow (Yellow) Urine Appearance Cloudy A (Clear) Urine pH 5.5 (5.0-8.5) Ur Specific Thurmond >= 1.030 (1.000-1.030) Urine Protein Trace A (Negative) Urine Glucose (UA) Negative (Negative) Urine Ketones Negative (Negative) Urine Blood 1+ A (Negative) Urine Nitrite Negative (Negative) Urine Bilirubin Negative (Negative) Urine Urobilinogen 0.2 (0.2-1.0) Ur Leukocyte Esterase 1+ A (Negative) Urine RBC 2-5 A (0-2) Urine WBC 5-10 A (0-5) Ur Squamous Epith Cells Few (None-Few) Urine Bacteria Few A (None) SARS-CoV-2 (PCR) Negative SARS-CoV-2 (Negative) Influenza Type A (PCR) Negative PCR FLU A (Negative) Influenza Type B (PCR) Negative PCR FLU B (Negative) RSV (PCR) Negative PCR RSV (Negative) 12/13/24 Range/Units 06:53 WBC 3.22 L (4.50-11.00) K/uL RBC 4.00 L (4.30-5.90) m/uL Hgb 12.0 L (13.5-17.5) gm/dL Hct 35.8 L (37.0-53.0) % MCV 90 (80-100) fL MCH 30 (26-34) pg MCHC 34 (32-36) gm/dL RDW Coeff of Yoav 12.8 (11.5-15.5) % Plt Count 147 (140-440) K/uL Neut % (Auto) 58.5 (42.0-72.0) % Lymph % (Auto) 27.6 (20-44) % Castro % (Auto) 12.1 H (0.0-11.0) % Eos % (Auto) 0.6 (0.0-7.0) % Baso % (Auto) 0.3 (0.0-3.0) % Neut # (Auto) 1.90 (1.7-7.0) K/uL Lymph # (Auto) 0.90 (0.90-2.90) K/uL Castro # (Auto) 0.40 (0.00-0.90) K/UL Eos # (Auto) 0.00 (0.00-0.50) K/uL Baso # (Auto) 0.00 (0.00-0.30) K/uL Abs Immat Gran (auto) 0.00 (0.00-0.30) K/uL Imm/Tot Granulo (auto) 0.9 % Sodium 134 L (135-149) mmol/L Potassium 3.5 L (3.6-5.1) mmol/L Chloride 107 (96-114) mmol/L Carbon Dioxide 24 (20-32) mmol/L Anion Gap 3 L (7-15) mEq/L BUN 18 (7-30) mg/dL Creatinine 1.0 (0.5-1.5) mg/dL Estimated Creat Clear 61.43 Estimated GFR 75 ml/min Glucose 84 (60-115) mg/dL Lactate (0.5-1.9) mmol/L Calcium 7.9 L (8.4-10.6) mg/dL Magnesium (1.5-2.6) mg/dL Total Bilirubin 0.5 (0.1-1.5) mg/dL Direct Bilirubin (0.0-0.5) mg/dL AST 26 (12-35) U/L ALT 16 (4-50) U/L Alkaline Phosphatase 51 (40-150) U/L Troponin I (0.01-0.04) ng/mL C-Reactive Protein 5.3 H (0.5-1.0) mg/dL Total Protein 5.6 L (6.0-8.3) g/dL Albumin 3.2 L (3.3-5.0) g/dL Procalcitonin (<0.50) ng/mL Urine Color (Yellow) Urine Appearance (Clear) Urine pH (5.0-8.5) Ur Specific Thurmond (1.000-1.030) Urine Protein (Negative) Urine Glucose (UA) (Negative) Urine Ketones (Negative) Urine Blood (Negative) Urine Nitrite (Negative) Urine Bilirubin (Negative) Urine Urobilinogen (0.2-1.0) Ur Leukocyte Esterase (Negative) Urine RBC (0-2) Urine WBC (0-5) Ur Squamous Epith Cells (None-Few) Urine Bacteria (None) SARS-CoV-2 (PCR) (Negative) Influenza Type A (PCR) (Negative) Influenza Type B (PCR) (Negative) RSV (PCR) (Negative) <Christi Valentin MD - Last Filed: 12/12/24 07:44> Discharge Plan Discharge Clinical Impression: Weakness, Exposure to influenza <Laurita Simental MD - Last Filed: 12/16/24 10:06> Patient Disposition: Admitted As Observation <Laurita Simental MD - Last Filed: 12/16/24 10:06> Condition: Improved <Laurtia Simental MD - Last Filed: 12/16/24 10:06> Activity Level: Activity as Tolerated <Laurita Simental MD - Last Filed: 12/16/24 10:06> Activity as Tolerated <Christi Valentin MD - Last Filed: 12/12/24 07:44> Discharge Diet: Regular <Laurita Simental MD - Last Filed: 12/16/24 10:06> Regular <Christi Valentin MD - Last Filed: 12/12/24 07:44>
[2024-12-11] MEDS: 0.9 % SODIUM CHLORIDE 1000 ml 1,000 ML 75 ML IV (23:42)
[2024-12-11 23:44] VITALS: BP 122/67; PULSE 100; RESP 16; TEMP 38.1; O2SAT 97
[2024-12-12] VITALS (38 sets, daily range): BP systolic 98–119; BP diastolic 56–65; PULSE 80–105; RESP 16–20; TEMP 37.1–38.2; O2SAT 90–99; BMI 28.0
[2024-12-12] MEDS: ACETAMINOPHEN 325 MG TABLET 650 MG PO (05:32)
--- NOTE | 2024-12-12 07:15 | ED.NURSE ---
Patient stated I don't think I can go home. I need more help than I have and am too weak right now. MD notified of this remark. Attempted to have patient get up and move around but patient refused at this time. Stated I am too weak. Ordered breakfast
--- NOTE | 2024-12-12 08:02 | ED.NURSE ---
Chronic catheter was exchanged. 16F salazar placed without difficulty. There was a lot of sediment from the old catheter and needed to irrigate the new one with 20cc to get it to flow. Working well now. Patient denied any pain during the exchange and irrigation.
--- NOTE | 2024-12-12 08:45 | ED.NURSE ---
Report called to Bonifacio Power RN.
--- NOTE | 2024-12-12 09:05 | ED.NURSE ---
Spoke with patients daughter. She is aware that patient will be admitted to room 281. She is not feeling well so will not be coming in.
--- NOTE | 2024-12-12 09:32 | PM.IMHP1 ---
Hospitalist- H&P: HPI History of Present Illness Date Seen: 12/12/24 Chief complaint: Weakness, flu symptoms, vomit Narrative: Frankie Heller is a 83 year old male who presented to our Emergency Department for 1-2 days of weakness and subjective fevers. He's also had a decreased appetite, occasional vomiting. No cough, chest pain, or dyspnea. recently hospitalized for Influenza A. They live in [place] at [facility] (she's in Memory care, he's in independent living apartments). She's been home for the past 2 days. ER Course and Findings: - reassuring VS, CXR, and EKG - no acute abnormalities on labs - negative Influenza/COVID/RSV - unable to ambulate without 2 person assist Boarded in ER overnight, admitted to the floor today in the setting of weakness, anorexia, recent Influenza exposure. Frankie was hospitalized with Urosepsis at [place] in August, [facility]. Has had an indwelling Watson in place since that stay (changed in ER prior to arrival to the floor). Histories updated below. PCP is Dr. Fink, [facility] in [place]. Review of Systems Status of ROS: Reports: 10 or more systems reviewed and unremarkable except as noted in History and below [facility] Medical History (Updated 12/12/24 @ 10:58 by Valerie Moreno MD) BPH (benign prostatic hyperplasia) ?N40.0 - Benign prostatic hyperplasia without lower urinary tract symptoms (ICD-10) Peripheral neuropathy ?G62.9 - Polyneuropathy, unspecified (ICD-10) Sepsis ?A41.9 - Sepsis, unspecified organism (ICD-10) Pulmonary embolism ?I26.99 - Other pulmonary embolism without acute cor pulmonale (ICD-10) Paroxysmal atrial fibrillation (09/01/24) ?I48.0 - Paroxysmal atrial fibrillation (ICD-10) NSTEMI (non-ST elevated myocardial infarction) (08/30/24) ?I21.4 - Non-ST elevation (NSTEMI) myocardial infarction (ICD-10) Acute kidney injury (08/30/24) ?N17.9 - Acute kidney failure, unspecified (ICD-10) Surgical History (Updated 12/12/24 @ 10:53 by Valerie Moreno MD) History of carpal tunnel surgery ?Z98.890 - Other specified postprocedural states (ICD-10) History of back surgery ?Z98.890 - Other specified postprocedural states (ICD-10) Social History (Updated 12/12/24 @ 10:50 by Valerie Moreno MD) Narrative: Lives in Shelter apartment, in Memory Care. Daughter Abdulaziz would be MDM if needed. Retired [employer]. Nonsmoker, 3-4 beers/week, Full Code status. What is your current living situation?: I presently have a place to live Problems where you live: no known problems Problems where you live details: none In the past 12 months, utilities in danger of being shut off: no In past 12 months, lack of transportation kept you from medical appts, meetings, work, or getting things needed for daily living: no In the past 12 mos, have been you worried that your food would run out before you had money to buy more?: never true In the past 12 mos, the food you bought just didn't last and you didn't have money to buy more?: never true Highest level of school completed/degree received: Master's degree Smoking Status: Former smoker What tobacco products do you use: cigarettes Smoking quit date/years: >15 years ago Do you use any of these nicotine containing products: None Second hand tobacco smoke exposure: No How often do you have a drink containing alcohol: 2-3 times a week Alcohol type: beer How many standard drinks containing alcohol do you have on a typical day: 1 or 2 How often do you have six or more drinks on one occasion: Never AUDIT-C Alcohol total score: 3 Non-prescribed substance use: denies use Caffeine: Yes (coffee) How often does anyone, including family, friends and others, physically hurt you: never How often does anyone, including family, friends and others, insult or talk down to you: never How often does anyone, including family, friends and others, threaten you with harm: never How often does anyone, including family, friends and others, scream or curse at you: never service: No Meds Home Medications and Allergies Home Medications ?Medication ?Instructions ?Recorded ?Confirmed ?Type atorvastatin 10 mg tablet 10 mg PO DAILY 12/11/24 12/11/24 History clotrimazole-betamethasone 1 1 applic topical Q12H PRN 12/11/24 12/12/24 History %-0.05 % topical cream finasteride 5 mg tablet 5 mg PO DAILY 12/11/24 12/11/24 History rivaroxaban 20 mg tablet (Xarelto) 20 mg PO DAILY 12/11/24 12/11/24 History furosemide 40 mg tablet 40 mg PO DAILY 12/12/24 12/12/24 History Allergies Allergy/AdvReac Type Severity Reaction Status Date / Time No Known Drug Allergies Allergy Verified 12/11/24 21:18 Exam Narrative: Exam Narrative: GEN: Alert and oriented, answering questions appropriately HEENT: EOMIs bilaterally, no scleral icterus CV: RRR, No concerning murmurs, rubs, or gallops R: LCTA bilaterally without concerning wheezing Ab: Soft, nontender, no distention, normal bowel sounds Ext: wwp, no concerning edema Skin: No concerning skin lesions or rashes on exposed skin Neuro: Nonfocal Psych: Appropriate Const: Vital Signs, click to edit/add: Vital Signs - 24 hr 12/11/24 20:17 12/11/24 23:44 12/12/24 00:15 Temperature 99.1 F 100.6 F H Pulse Rate 98 Pulse Rate [Pulse Oximeter] 100 100 Respiratory Rate 18 16 Blood Pressure Blood Pressure [Le ft Arm] Blood Pressure [Ri ght Forearm] 148/74 H 122/67 Pulse Oximetry 97 97 99 [facility] Room Air 12/12/24 00:30 12/12/24 00:45 12/12/24 01:00 Temperature Pulse Rate 94 104 H 97 Pulse Rate [Pulse Oximeter] Respiratory Rate Blood Pressure Blood Pressure [Le ft Arm] Blood Pressure [Ri ght Forearm] Pulse Oximetry 96 95 95 Oxygen Delivery In thod 12/12/24 01:15 12/12/24 01:30 12/12/24 02:00 Temperature Pulse Rate 92 91 99 Pulse Rate [Pulse Oximeter] Respiratory Rate Blood Pressure Blood Pressure [Le ft Arm] Blood Pressure [Ri ght Forearm] Pulse Oximetry 97 96 98 [facility] 12/12/24 02:15 12/12/24 02:45 12/12/24 03:00 Temperature Pulse Rate 96 94 90 Pulse Rate [Pulse Oximeter] Respiratory Rate Blood Pressure Blood Pressure [Le ft Arm] Blood Pressure [Ri ght Forearm] Pulse Oximetry 98 94 95 Oxygen Delivery Me thod 12/12/24 03:15 12/12/24 03:30 12/12/24 03:51 Temperature Pulse Rate 103 H 90 101 H Pulse Rate [Pulse Oximeter] Respiratory Rate Blood Pressure Blood Pressure [Le ft Arm] Blood Pressure [Ri ght Forearm] Pulse Oximetry 95 94 93 Oxygen Delivery Me thod 12/12/24 04:00 12/12/24 04:15 12/12/24 04:30 Temperature Pulse Rate 92 88 80 Pulse Rate [Pulse Oximeter] Respiratory Rate Blood Pressure Blood Pressure [Le ft Arm] Blood Pressure [Ri ght Forearm] Pulse Oximetry 92 93 93 Oxygen Delivery Me thod 12/12/24 04:48 12/12/24 04:49 12/12/24 05:00 Temperature 100.8 F H Pulse Rate 95 105 H 86 Pulse Rate [Pulse Oximeter] Respiratory Rate 16 Blood Pressure 110/61 Blood Pressure [Le ft Arm] Blood Pressure [Ri ght Forearm] Pulse Oximetry 94 92 93 Oxygen Delivery In thod 12/12/24 05:15 12/12/24 05:30 12/12/24 05:32 Temperature 100.8 F H Pulse Rate 82 84 Pulse Rate [Pulse Oximeter] Respiratory Rate Blood Pressure Blood Pressure [Le ft Arm] Blood Pressure [Ri ght Forearm] Pulse Oximetry 93 94 Oxygen Delivery In thod 12/12/24 05:45 12/12/24 06:00 12/12/24 06:15 Temperature Pulse Rate 83 92 84 Pulse Rate [Pulse Oximeter] Respiratory Rate Blood Pressure Blood Pressure [Le ft Arm] Blood Pressure [Ri ght Forearm] Pulse Oximetry 94 94 91 Oxygen Delivery In thod 12/12/24 06:30 12/12/24 06:45 12/12/24 07:00 Temperature Pulse Rate 85 83 89 Pulse Rate [Pulse Oximeter] Respiratory Rate Blood Pressure Blood Pressure [Le ft Arm] Blood Pressure [Ri ght Forearm] Pulse Oximetry 90 92 90 Oxygen Delivery In thod 12/12/24 07:15 12/12/24 07:30 12/12/24 07:30 Temperature 99.0 F Pulse Rate 83 87 Pulse Rate [Pulse Oximeter] Respiratory Rate Blood Pressure Blood Pressure [Le ft Arm] Blood Pressure [Ri ght Forearm] Pulse Oximetry 92 93 Oxygen Delivery Me thod 12/12/24 07:33 12/12/24 09:11 Temperature 99.0 F 98.7 F Pulse Rate 91 Pulse Rate [Pulse Oximeter] 84 Respiratory Rate 16 16 Blood Pressure 98/62 Blood Pressure [Le ft Arm] 119/65 Blood Pressure [Ri ght Forearm] Pulse Oximetry 93 94 [facility]xygen [facility] Hospitalist - H&P: Result Labs Labs: Short CBC 12/11/24 Range/Units 21:10 WBC 6.07 (4.50-11.00) K/uL Hgb 13.2 L (13.5-17.5) gm/dL Hct 40.5 (37.0-53.0) % Plt Count 188 (140-440) K/uL BMP 12/11/24 21:10 Sodium 135 Potassium 4.1 Chloride 101 Carbon Dioxide 26 BUN 23 Creatinine 1.1 Glucose 118 H Calcium 8.9 Cardiac Enzymes 12/11/24 Range/Units 21:10 Troponin I < 0.01 L (0.01-0.04) ng/mL Liver Function 12/11/24 Range/Units 21:10 Total Bilirubin 0.7 (0.1-1.5) mg/dL Direct Bilirubin 0.2 (0.0-0.5) mg/dL AST 25 (12-35) U/L ALT 17 (4-50) U/L Alkaline Phosphatase 55 (40-150) U/L Albumin 4.1 (3.3-5.0) g/dL Urine 12/11/24 Range/Units Unknown Urine Color Yellow (Yellow) Urine Appearance Cloudy A (Clear) Urine pH 5.5 (5.0-8.5) Ur Specific Bronson >= 1.030 (1.000-1.030) Urine Protein Trace A (Negative) Urine Glucose (UA) Negative (Negative) Assessment and Plan Assessment and plan (1) Exposure to influenza: Problem comment: - negative testing in ER 12/11 - discussed risks/benefits: would like to treat empirically with Tamiflu given exposure and weakness (may need to d/c if this worsens his GI symptoms) Status: Acute (2) Weakness: Problem comment: - 2/2 acute illness - PT/OT referrals - needed rehab after August 2024 hospitalization (if needed again, was happy with his stay at [facility] in [place]) Status: Acute (3) Anorexia: Problem comment: - with intermittent vomiting, non since admission - possible 2/2 acute illness vs other viral syndrome vs early gallbladder disease - advance diet as tolerated, monitor symptoms Status: Acute (4) Pulmonary embolism: Problem comment: - history of this, continue Xarelto Status: Acute (5) BPH (benign prostatic hyperplasia): Problem comment: - has had indwelling catheter in place since 09/19 (last changed in the ER on 12/12/24) - on Finasteride - TURP scheduled with Urology for February 2025 Status: Acute Plan - per above - offered to call daughter with update; patient declined and will update his family - expect 1-2 day stay, may need SNF pending clinical course
[2024-12-12] MEDS: OSELTAMIVIR PHOSPHATE 75 MG CAPSULE PO (10:39)
--- NOTE | 2024-12-12 16:21 | REH.OT ---
OT Consult Order Received. Evaluation Attempted 2X. Will re-attempt eval tomorrow.
--- NOTE | 2024-12-12 20:21 | PC.NURSE ---
End of Shift: Patient pleasant and cooperative, alert and oriented. Patient vitally stable, lung diminished, BS WNL, IV SL and intact. Patient denies pain. Patient salazar intact and draining, and has had two BMs today. Patient is 1 assist/walker. Patient spent majority of day in bed but was in chair for dinner eating 50% of meal.
[2024-12-13] VITALS (9 sets, daily range): BP systolic 105–143; BP diastolic 53–87; PULSE 73–81; RESP 16–20; TEMP 36.4–38; O2SAT 93–97
[2024-12-13] MEDS: ACETAMINOPHEN 325 MG TABLET 975 MG PO (02:15)
[2024-12-13 07:16] LABS: Basophils Percent Auto 0.3 % (0.0-3.0); Eosinophils Percent Auto 0.6 % (0.0-7.0); Hematocrit 35.8 % (37.0-53.0); Immature Granulocytes Pct Auto 0.9 %; Lymphocytes Percent Auto 27.6 % (20-44); Mean Corpuscular HGB Conc 34 gm/dL (32-36); Mean Corpuscular Hemoglobin 30 pg (26-34); Mean Corpuscular Volume 90 fL (80-100); Monocytes Percent Auto 12.1 % (0.0-11.0); Neutrophils Percent Auto 58.5 % (42.0-72.0); Platelet Count* 147 K/uL (140-440); RDW Coefficient of Variation % 12.8 % (11.5-15.5); White Blood Count* 3.22 K/uL (4.50-11.00)
[2024-12-13 07:17] LABS: Slide Review Reflex No
[2024-12-13 07:32] LABS: Chloride* 107 mmol/L (96-114)
[2024-12-13 07:33] LABS: Albumin* 3.2 g/dL (3.3-5.0); Potassium* 3.5 mmol/L (3.6-5.1); Sodium* 134 mmol/L (135-149)
[2024-12-13 07:35] LABS: Est. Creatinine Clearance* 61.43; Estimated Glomerular Filt Rate 75 ml/min
[2024-12-13 07:36] LABS: Alanine Aminotransferase* 16 U/L (4-50); Alkaline Phosphatase* 51 U/L (40-150); Anion Gap 3 mEq/L (7-15); Aspartate Amino Transferase* 26 U/L (12-35); Bilirubin Total* 0.5 mg/dL (0.1-1.5); Blood Urea Nitrogen* 18 mg/dL (7-30); Carbon Dioxide* 24 mmol/L (20-32); Glucose* 84 mg/dL (60-115); Total Protein* 5.6 g/dL (6.0-8.3)
[2024-12-13 07:37] LABS: Calcium* 7.9 mg/dL (8.4-10.6)
[2024-12-13 07:39] LABS: C Reactive Protein* 5.3 mg/dL (0.5-1.0)
--- NOTE | 2024-12-13 07:39 | PC.NURSE ---
[id number]: Pt AxOx4, cooperative, and pleasant. Patient denies pain and nausea this shift. Pt had a large diarrhea BM upon initial assessment. LSCTA. Pt A1 GB W. Pt was able to sleep for majority of the shift. Pt had at temp of? 100.4 @ 0300. PRN Tylenol given. Recheck 99.7. Watson is patent and draining. Pt resting with call light in reach. ?
[2024-12-13] MEDS: RIVAROXABAN 10 MG TABLET 20 MG PO (09:35)
[2024-12-13] MEDS: SODIUM CHLORIDE 0.9 % (FLUSH) 10 ML SYRINGE 5 ML IVF ×2 (09:35→21:53)
[2024-12-13] MEDS: OSELTAMIVIR PHOSPHATE 75 MG CAPSULE PO (09:35)
[2024-12-13] MEDS: ATORVASTATIN 10 MG TABLET PO (09:35)
[2024-12-13] MEDS: FINASTERIDE 5 MG TABLET PO (09:36)
--- NOTE | 2024-12-13 12:02 | PC.SOCIAL ---
Discharge planning: Met with pt and spoke with dtr Zelda at his request by phone regarding d/c plans. Pt lives in [facility] in [place], [place] and lives in independent living where he uses his walker for ambulation. His lives in the memory care unit at the same facility. The facility has memory care and assisted living, but not a TCU per dtr. Dtr and pt are requesting placement for short term rehab at [facility] if possible as he has been there previously. If there are no beds available, dtr suggested [facility], [facility] or [facility] in [place]. Emailed the resource lists for short term rehab care in [facility]it[facility] facilities to dtr at [email or web address] at her request. Dtr shared that she and the rest of the family are all sick and that is why they have not been able to visit pt in the hospital. Dtr states she has been in frequent contact with pt on his cell phone. Provided dtr with nurses station and hospital room phone number to contact if needed. Dtr was appreciative of information provided. Dtr and pt are aware of how to contact social media intern if needed. homeworker to follow up regarding placement at discharge.
--- NOTE | 2024-12-13 17:38 | PM.IMPN1 ---
Progress Note: A&P Assessment and plan (1) Influenza-like illness: Problem details: -given exposure to (+ influenza last week, hospitalized three days), despite testing negative; treating as if pos for FluA? - negative testing in ER 12/11 - discussed risks/benefits: would like to treat empirically with Tamiflu given exposure and weakness (may need to d/c if this worsens his GI symptoms) Status: Acute (2) Weakness: Problem details: - 2/2 acute illness - PT/OT referrals - needed rehab after August 2024 hospitalization (if needed again, was happy with his stay at [facility] in [place]) Status: Acute (3) Anorexia: Problem details: - with intermittent vomiting, non since admission - possible 2/2 acute illness vs other viral syndrome vs early gallbladder disease - advance diet as tolerated, monitor symptoms Status: Acute (4) Pulmonary embolism: Problem details: - history of this, continue Xarelto Status: Acute (5) BPH (benign prostatic hyperplasia): Problem details: - has had indwelling catheter in place since 09/19 (last changed in the ER on 12/12/24) - on Finasteride - TURP scheduled with Urology for February 2025 Status: Acute Subjective Date Seen: 12/13/24 Interval history: Daily Progress Note - Hospital Medicine Day #2 CC: generalized weakness with presumed influenza. 24 HOUR UPDATE: Much improved this morning. pt is weak and fatigues easily but is moving much more independently. hemodynamically stable. Notable Labs, Micro, Rads, Interventions: CBC reveals a white blood cell count that is mildly depressed at 3.22. Hemoglobin is a little bit depressed at 12.0. Platelets are normal. Sodium and potassium are mildly depleted. Renal function is normal. Glucose is normal. CRP is up trending just marginally. Objective: alert, following directions. I observed sit to stand, pivot with PT/Walker Vitals: see above Lungs: Clear. Cardiac: S1S2. Disposition/Potential discharge - home to senior apartments. Exam Const: Vital Signs, click to edit/add: Vital Signs - 24 hr 12/12/24 19:00 12/12/24 23:00 12/13/24 02:15 Temperature 99.1 F 99.7 F H 100.4 F H Pulse Rate [Pulse Oximeter] 86 81 Respiratory Rate 18 16 Blood Pressure [Le ft Arm] 113/56 L Blood Pressure [Ri ght Arm] 100/58 L Pulse Oximetry 97 94 Oxygen Delivery Me thod Room Air Room Air 12/13/24 02:17 12/13/24 03:08 12/13/24 07:00 Temperature 100.4 F H 99.7 F H Pulse Rate [Pulse Oximeter] 81 79 Respiratory Rate 16 16 Blood Pressure [Le ft Arm] 111/59 L Blood Pressure [Ri ght Arm] Pulse Oximetry 93 Oxygen Delivery Me thod Room Air 12/13/24 08:38 12/13/24 11:00 12/13/24 15:00 Temperature 97.9 F 97.6 F Pulse Rate [Pulse Oximeter] 79 73 73 Respiratory Rate 16 16 16 Blood Pressure [Le ft Arm] Blood Pressure [Ri ght Arm] 127/87 143/72 H Pulse Oximetry 93 97 Oxygen Delivery Me thod Room Air Room Air Labs Labs: Laboratory Results - last 24 hr 12/13/24 06:53 WBC 3.22 L RBC 4.00 L Hgb 12.0 L Hct 35.8 L MCV 90 MCH 30 MCHC 34 RDW Coeff of Yoav 12.8 Plt Count 147 Neut % (Auto) 58.5 Lymph % (Auto) 27.6 Crawford % (Auto) 12.1 H Eos % (Auto) 0.6 Baso % (Auto) 0.3 Neut # (Auto) 1.90 Lymph # (Auto) 0.90 Crawford # (Auto) 0.40 Eos # (Auto) 0.00 Baso # (Auto) 0.00 Abs Immat Gran (auto) 0.00 Imm/Tot Granulo (auto) 0.9 Sodium 134 L Potassium 3.5 L Chloride 107 Carbon Dioxide 24 Anion Gap 3 L BUN 18 Creatinine 1.0 Estimated Creat Clear 61.43 Estimated GFR 75 Glucose 84 Calcium 7.9 L Total Bilirubin 0.5 AST 26 ALT 16 Alkaline Phosphatase 51 C-Reactive Protein 5.3 H Total Protein 5.6 L Albumin 3.2 L
[2024-12-13] MEDS: POTASSIUM BICARB 25 MEQ EFFERVESCENT TAB PO ×2 (18:56→21:49)
--- NOTE | 2024-12-13 20:17 | PC.NURSE ---
Pt alert, oriented and vitally stable. Pt up via SBA tolerates well. Afebrile. Watson patent and draining. Pt up in halls with staff today, tolerates well. Pt in bed, appears to be resting, call light within reach.
[2024-12-14 03:00] VITALS: BP 110/63; PULSE 68; RESP 16; TEMP 36.6; O2SAT 95
[2024-12-14 07:00] VITALS: BP 119/65; PULSE 69; RESP 16; TEMP 36.8; O2SAT 94
[2024-12-14 07:26] LABS: Basophils Percent Auto 0.3 % (0.0-3.0); Eosinophils Percent Auto 0.9 % (0.0-7.0); Hematocrit 35.7 % (37.0-53.0); Hemoglobin* 11.9 gm/dL (13.5-17.5); Immature Granulocytes Pct Auto 0.6 %; Lymphocytes Percent Auto 39.3 % (20-44); Mean Corpuscular HGB Conc 33 gm/dL (32-36); Mean Corpuscular Hemoglobin 30 pg (26-34); Mean Corpuscular Volume 89 fL (80-100); Monocytes Percent Auto 13.7 % (0.0-11.0); Neutrophils Percent Auto 45.2 % (42.0-72.0); Platelet Count* 161 K/uL (140-440); RDW Coefficient of Variation % 12.6 % (11.5-15.5); Red Blood Count 4.02 m/uL (4.30-5.90); White Blood Count* 3.28 K/uL (4.50-11.00)
[2024-12-14 07:28] LABS: Chloride* 107 mmol/L (96-114)
[2024-12-14 07:29] LABS: Potassium* 3.7 mmol/L (3.6-5.1); Sodium* 136 mmol/L (135-149)
[2024-12-14 07:31] LABS: Est. Creatinine Clearance* 61.43; Estimated Glomerular Filt Rate 75 ml/min
[2024-12-14 07:32] LABS: Anion Gap 4 mEq/L (7-15); Blood Urea Nitrogen* 15 mg/dL (7-30); Calcium* 8.1 mg/dL (8.4-10.6); Carbon Dioxide* 25 mmol/L (20-32); Glucose* 86 mg/dL (60-115); Magnesium* 2.3 mg/dL (1.5-2.6)
[2024-12-14 07:53] LABS: Slide Review Reflex No
--- NOTE | 2024-12-14 08:38 | PC.NURSE ---
Shift note ([id number]): Patient pleasant, alert and oriented. Remained in bed this shift. Denied pain. Catheter patent and draining clear light-yellow urine.?
[2024-12-14] MEDS: FINASTERIDE 5 MG TABLET PO (09:27)
[2024-12-14] MEDS: SODIUM CHLORIDE 0.9 % (FLUSH) 10 ML SYRINGE 5 ML IVF ×2 (09:27→21:44)
[2024-12-14] MEDS: OSELTAMIVIR PHOSPHATE 75 MG CAPSULE PO (09:27)
[2024-12-14] MEDS: ATORVASTATIN 10 MG TABLET PO (09:27)
[2024-12-14] MEDS: RIVAROXABAN 10 MG TABLET 20 MG PO (09:27)
--- NOTE | 2024-12-14 10:52 | P.DS_ITS ---
DS: Providers Provider Date Seen: 12/14/24 Date of admission: 12/13/24 09:15 Primary care physician: Not a Local Provider Admitting Clinician: Krystle Sanches MD Consults: 12/12/24 10:12 Consult to Occupational Therapy [CONS] Routine Comment: Reason(s) for OT Consult:: Evaluate and Treat Any Restrictions?:: No Restrictions Consult to Physical Therapy [CONS] Routine Comment: Reason(s) for PT Consult:: Evaluate and Treat Any Restrictions?:: No Restrictions Consult to Map Maker [CONS] Routine Comment: Reason for Consult:: Discharge Planning Needs Attending Physician on discharge: Krystle Sanches MD Date of Discharge: 12/14/24 DS: Diagnosis Discharge Diagnosis (1) Influenza-like illness: Status: Acute Problem details: -given exposure to (+ influenza last week, hospitalized three days), despite testing negative; treating as if pos for FluA? - negative testing in ER 12/11 - discussed risks/benefits: would like to treat empirically with Tamiflu given exposure and weakness (may need to d/c if this worsens his GI symptoms) (2) Weakness: Status: Acute Problem details: - 2/2 acute illness - PT/OT worked with him. He was using his 4W walker >200 feet by 12/14. He has trouble going from laying to sitting; bed rail/bed ladder recommended. - No qualifying skilled needs noted at discharge (3) BPH (benign prostatic hyperplasia): Status: Acute Problem details: - has had indwelling catheter in place since 09/19 (last changed in the ER on 12/12/24) - on Finasteride - TURP scheduled with Urology for February 2025 (4) Pulmonary embolism: Status: Acute Problem details: - history of this, continue Xarelto DS: Summary Hospital Course Hospital Course: FINAL DIAGNOSIS/FOLLOW UP ISSUES: 1. Influenza-Like illness: admitted with +Flu A; he was symptomatic the next week. Tested neg. treated with the prophylaxis dose, 75mg x 10 days. 2. Acute weakness: likely related to +Flu A; recommend outpatient PT/OT and increased equipment and services within his apartment BRIEF HOSPITAL COURSE: Patient was admitted for 3 days. Synopsis of acute inpatient issues are outlined above. Chronic medical conditions with notable findings outlined above. The patient presented with influenza like illness. He received oral Tamiflu. He responded well to rest and PT and OT support. By hospital day 2 he was ambulating from his room to the nurse's status, about 200 ft, with his 4 wheeled walker. He has some truncal weakness making it difficult to go from lying to sitting. A bed rail was very helpful. He met discharge criteria and in fact had no qualifying PT or OT skilled needs for rehab. We made some general recommendations for his apartment. These included a bed rail, bed ladder, raise d toilet seat, follow alert pendant and potentially a [employer] in the coming weeks. DISCHARGE MEDICATIONS: See Reconciled list - SIGNIFICANT CHANGES: Tamiflu for 7 more days Specific instructions to the patient and follow-up are outlined below. REVIEW OF SYSTEMS No new chest pain or dyspnea Pain controlled No voiding difficulties Tolerating diet challenge PHYSICAL EXAM: CONSTITUTIONAL: Alert, cooperative. Pleasant. VITAL SIGNS: see record. HEENT: Normocephalic, atraumatic. PERRL, EOMI, conjunctivae pink, no scleral icterus. Ears and nose externally normal. Pharynx normal. NECK: No JVD. No carotid bruit, no thyromegaly, no adenopathy. CHEST: Clear to auscultation bilaterally. HEART: S1 and S2 normal. Edema ABDOMEN: Soft, nontender. Normal bowel sounds. MUSCULOSKELETAL: No gross joint deformity or swelling. NEURO: Cranial nerves intact. Grossly intact. No asymmetric findings. SKIN: No rashes, petechiae, concerning changes PSYCHIATRIC: Mood euthymic. DISPOSITION: Home Time spent on discharge 37 minutes. Status at Discharge Functional status at discharge: uses cane/walker Overall status at discharge: patient is progressing back to baseline Time Spent with Patient Time attestation: Total time spent providing and/or coordinating discharge services: Time spent: Greater than 30 minutes Exam Const: Vital Signs, click to edit/add: Vital Signs - 24 hr 12/13/24 11:00 12/13/24 15:00 12/13/24 15:00 Temperature 97.6 F 98.1 F Pulse Rate [Pulse Oximeter] 73 73 80 Respiratory Rate 16 16 16 Blood Pressure [Le ft Arm] Blood Pressure [Ri ght Arm] 143/72 H 143/78 H Pulse Oximetry 97 96 Oxygen Delivery Me thod Room Air Room Air 12/13/24 19:00 12/13/24 23:00 12/14/24 03:00 Temperature 98.8 F 98.4 F 97.9 F Pulse Rate [Pulse Oximeter] 73 76 68 Respiratory Rate 18 20 16 Blood Pressure [Le ft Arm] 105/53 L Blood Pressure [Ri ght Arm] 113/64 110/63 Pulse Oximetry 94 95 95 Oxygen Delivery Me thod Room Air Room Air Room Air 12/14/24 07:00 Temperature 98.2 F Pulse Rate [Pulse Oximeter] 69 Respiratory Rate 16 Blood Pressure [Le ft Arm] Blood Pressure [Ri ght Arm] 119/65 Pulse Oximetry 94 Oxygen Delivery Me thod Room Air DS: Data Data Completed and Pending Labs on day of discharge: Labs from last 24 hours 12/14/24 06:50 WBC 3.28 L RBC 4.02 L Hgb 11.9 L Hct 35.7 L MCV 89 MCH 30 MCHC 33 RDW Coeff of Yoav 12.6 Plt Count 161 Neut % (Auto) 45.2 Lymph % (Auto) 39.3 [place] % (Auto) 13.7 H Eos % (Auto) 0.9 Baso % (Auto) 0.3 Neut # (Auto) 1.50 L Lymph # (Auto) 1.30 [place] # (Auto) 0.40 Eos # (Auto) 0.00 Baso # (Auto) 0.00 Abs Immat Gran (auto) 0.00 Imm/Tot Granulo (auto) 0.6 Sodium 136 Potassium 3.7 Chloride 107 Carbon Dioxide 25 Anion Gap 4 L BUN 15 Creatinine 1.0 Estimated Creat Clear 61.43 Estimated GFR 75 Glucose 86 Calcium 8.1 L Magnesium 2.3 Discharge Plan Discharge Disposition: Home, Self-Care Date of Admission: 12/13/24 09:15 Attending Provider on Discharge: Krystle Sanches Primary Care Provider: Provider,Not a Local Condition: Improved Anticipated Discharge Date/Time: 12/14/24 08:00 Discharge Medications: New oseltamivir 75 mg Capsule 75 mg PO DAILY Qty: 7 0RF Continued atorvastatin 10 mg tablet 10 mg PO DAILY clotrimazole-betamethasone 1-0.05 % cream 1 applic topical Q12H PRN finasteride 5 mg tablet 5 mg PO DAILY Xarelto 20 mg tablet 20 mg PO DAILY furosemide 40 mg tablet 40 mg PO DAILY Rx Instructions: Take 40 mg by mouth daily. Discharge Orders: Discharge Order (Routine); Ordered 12/14/24 Ordered By: Krystle Sanches Additional Instructions: You did not test positive for influenza but we treated you as if you were positive. I want you to take 7 more days of the Tamiflu. I sent that to your pharmacy. If you develop vomiting or diarrhea (common side effects of Tamiflu) it is okay to just stop the medication. You should wear a mask around others. You don't have to mask with your as she has immunity to influenza, because she just had it. We also recommend increasing your services, equipment and support at home: bedside rail, bed ladder, raised toilet seat, fall alert pendant. If private [employer] (geriatric personal care aide) is affordable that may be a great option. Activity Level: Activity as Tolerated Discharge Diet: Regular Follow Up Appointments: Provider,Not a Local [Primary Care Provider] - Forms: [facility] Info Instructions
[2024-12-14 11:00] VITALS: BP 118/69; PULSE 77; RESP 18; TEMP 36.6; O2SAT 96
[2024-12-14 15:00] VITALS: BP 130/86; PULSE 79; RESP 18; TEMP 36.9; O2SAT 94
--- NOTE | 2024-12-14 15:04 | W.PM.CROSSCO ---
Subjective Subjective Date Seen: 12/14/24 Principal diagnosis: Influenza, weakness Interval history: 83-year-old male admitted to the hospital with influenza a and weakness. He clinically improved during his hospital stay both with influenza symptoms and his weakness. He still feels like he is a little weaker than baseline but thinks he may be able to return to his independent living tomorrow. This morning the plan was that he would be discharged today. The patient and his daughter were both concerned he is not quite ready for that. After some discussion they agreed that he likely will be strong enough to go home tomorrow. Assessment and Plan Assessment and plan (1) Influenza-like illness: Problem comment: -given exposure to (+ influenza last week, hospitalized three days), despite testing negative; treating as if pos for FluA? - negative testing in ER 12/11 - discussed risks/benefits: would like to treat empirically with Tamiflu given exposure and weakness (may need to d/c if this worsens his GI symptoms) Status: Acute (2) Weakness: Problem comment: - 2/2 acute illness - PT/OT worked with him. He was using his 4W walker >200 feet by 12/14. He has trouble going from laying to sitting; bed rail/bed ladder recommended. - No qualifying skilled needs noted at discharge Status: Acute Plan Discharge to home tomorrow. Total Time Spent Total Time Spent: 30 min in chart review, discussion with patient, daughter and nursing staff and other providers
--- NOTE | 2024-12-14 17:31 | PC.NURSE ---
Order to D/C per Dr. Sanches. Dr. Sanches attempted to call daughter, Abdulaziz, x2 but was not able to reach. Spoke with daughter this afternoon, states she does not feel patient is safe to discharge back to apartment. MD updated. MD called Abdulaziz to discuss this. Discharge cancelled per MD with potential discharge tomorrow 12/14 as patient is gaining strength per patient/daughter.
--- NOTE | 2024-12-14 18:45 | PC.NURSE ---
Pt alert, oriented and vitally stable. Pt states I feel much stronger today Pt up via SBA, tolerates well. Watson patent and draining. Pt in bed, appears to be resting, call light within reach.
[2024-12-14 19:00] VITALS: BP 108/57; PULSE 71; RESP 19; TEMP 37; O2SAT 96
[2024-12-14 23:00] VITALS: BP 101/60; PULSE 73; RESP 18; TEMP 37; O2SAT 95
[2024-12-15 03:00] VITALS: BP 98/50; PULSE 72; RESP 18; TEMP 36.7; O2SAT 93
[2024-12-15 07:00] VITALS: BP 126/73; PULSE 70; RESP 16; TEMP 36.6; O2SAT 93
[2024-12-15] MEDS: OSELTAMIVIR PHOSPHATE 75 MG CAPSULE PO (08:59)
[2024-12-15] MEDS: FINASTERIDE 5 MG TABLET PO (08:59)
[2024-12-15] MEDS: SODIUM CHLORIDE 0.9 % (FLUSH) 10 ML SYRINGE 5 ML IVF (08:59)
[2024-12-15] MEDS: RIVAROXABAN 10 MG TABLET 20 MG PO (08:59)
[2024-12-15] MEDS: ATORVASTATIN 10 MG TABLET PO (08:59)
[2024-12-15 11:00] VITALS: BP 134/65; PULSE 73; RESP 18; TEMP 36.4; O2SAT 95
--- NOTE | 2024-12-15 12:43 | P.IMPN_ITS ---
Progress Note: A&P Assessment and plan (1) Influenza-like illness: Problem details: -given exposure to (+ influenza last week, hospitalized three days), despite testing negative; treating as if pos for FluA? - negative testing in ER 12/11 - discussed risks/benefits: would like to treat empirically with Tamiflu given exposure and weakness (may need to d/c if this worsens his GI symptoms) Status: Acute (2) Weakness: Problem details: - 2/2 acute illness - PT/OT worked with him. He was using his 4W walker >200 feet by 12/14. He has trouble going from laying to sitting; bed rail/bed ladder recommended. - No qualifying skilled needs noted at discharge Status: Acute (3) Anorexia: Problem details: - with intermittent vomiting, non since admission - possible 2/2 acute illness vs other viral syndrome vs early gallbladder disease - advance diet as tolerated, monitor symptoms Status: Resolved (4) Pulmonary embolism: Problem details: - history of this, continue Xarelto Status: Acute (5) BPH (benign prostatic hyperplasia): Problem details: - has had indwelling catheter in place since 09/19 (last changed in the ER on 12/12/24) - on Finasteride - TURP scheduled with Urology for February 2025 Status: Acute (6) Grief reaction: Status: Acute Time Spent With Patient Total time spent: Today I spent 35 minute seeing the patient, discussing care with the patient's daughter over the phone, reviewing [facility] and EP[facility] notes/diagnostics/labs, discussing the care plan with our care team that includes social work, PT/OT, pharmacy, RT, senior living and documenting my impressions and plan in the medical record. Subjective Time Seen by Provider: 10:03 Date Seen: 12/15/24 Interval history: Frankie is feeling better and stronger today. I spoke with OT and he was able to get up from the bed independently today. Frankie noted that he feels well to go home today and that he is improving. I spoke with his daughter, Jermain, in she was also agreeable to come get him to take him home. She and I discussed that some of his mobility issues are more chronic and that she is going to speak with the assisted facility where he is at as he may start qualify for services there. Frankie was tearful today and noted that his is in memory care next door. He notes that she does not remember him some of the time. I asked Frankie to follow-up with his primary care provider to discuss treatment options or therapy for grief. He was agreeable to do this. I also discussed this with his daughter, who thought it was a good idea. Exam Narrative: Exam Narrative: General: No acute distress. Awake, alert, oriented x3. No pallor. No jaundice. Oropharynx: Clear. Mucous membranes moist. Cardiovascular: Regular rate and rhythm. No murmurs, gallops, or rubs. Respiratory: Clear to auscultation bilaterally. No wheezes or crackles. Abdomen: Bowel sounds present. Soft, nondistended, nontender. Extremities: No lower extremity edema. Const: Vital Signs, click to edit/add: Vital Signs - 24 hr 12/14/24 15:00 12/14/24 15:00 12/14/24 19:00 Temperature 98.5 F 98.6 F Pulse Rate [Pulse Oximeter] 79 79 71 Respiratory Rate 18 18 19 Blood Pressure [Ri ght Arm] 130/86 108/57 L Pulse Oximetry 94 96 Oxygen Delivery Me thod Room Air Room Air 12/14/24 23:00 12/15/24 03:00 12/15/24 07:00 Temperature 98.6 F 98.1 F 97.9 F Pulse Rate [Pulse Oximeter] 73 72 70 Respiratory Rate 18 18 16 Blood Pressure [Ri ght Arm] 101/60 98/50 L 126/73 Pulse Oximetry 95 93 93 Oxygen Delivery Me thod Room Air Room Air Room Air 12/15/24 07:00 12/15/24 11:00 Temperature 97.6 F Pulse Rate [Pulse Oximeter] 70 73 Respiratory Rate 16 18 Blood Pressure [Ri ght Arm] 134/65 Pulse Oximetry 95 Oxygen Delivery Me thod Room Air
--- NOTE | 2024-12-15 15:01 | PC.NURSE ---
DC: Pt alert, oriented and vitally stable. Pt up via SBA, tolerates well. Catheter bag changed to leg bag. IV removed, tip intact. DC information given to pt and daughter. Pt DC back to facility with daughter at 1448.
== END 2024-12-15 14:48 | disposition home or self-care (01) | DRG 866 ==
LOC: ED 12-12 07:44 → MEDSURG 12-12 09:07
PROVIDERS: Family Medicine; Admitting Provider Family Medicine; Emergency Provider Emergency Medicine; Visit Provider Family Medicine
DX: J11.2 Influenza due to unidentified influenza virus with gastrointestinal manifestations (principal); R53.1 Weakness; R63.0 Anorexia; Z86.711 Personal history of pulmonary embolism; Z79.01 Long term (current) use of anticoagulants; F43.20 Adjustment disorder, unspecified; I48.0 Paroxysmal atrial fibrillation; G62.9 Polyneuropathy, unspecified
CPT/HCPCS: 36415; 71045; 80048; 80053; 80076; 81001; 83605; 83735; 84145; 84484; 85025; 86140; 87086; 87631; 93005; 97110; 97116; 97161; 97165; 97530; 97535; 99284; 99285; A9270; G0378; J7030